=== PATIENT | female | born 1995 | race Caucasian/White ===

== ENCOUNTER 2020-05-06 08:20 | Emergency (ER) | payer OTHER, SELFPAY ==
[2020-05-06 08:42] VITALS: BP 131/73; PULSE 60; RESP 16; TEMP 36.7; O2SAT 100
--- NOTE | 2020-05-06 09:04 | ED.ABDPAIN ---
HPI - Abdominal Pain General Chief Complaint: Abdominal Pain Stated Complaint: Abdominal pain History of Present Illness HPI narrative: This is a 24-year-old white female who presented to urgent care today complaining of abdominal pain. According to patient her symptoms started yesterday and it worsens when she bends over she also noted that her pain migrates to her right lower back. Patient will transfer to [facility] for further testing accepting physician Dr. Phillips. Patient will be transferred 40 and her own personal vehicle it has been explained to patient that we recommend transfer to [facility] via EMS for safety reasons. Patient has declined and will transfer herself via personal vehicle. The patient denies SOB, CP, palpitation, extremity numbness, lightheadedness, dizziness, constipation, diarrhea, chills, or fever. Related Data Home Medications Medication Instructions Recorded Confirmed No Home Medications 05/06/20 05/06/20 Allergies Allergy/AdvReac Type Severity Reaction Status Date / Time No Known Allergies Allergy Mild NONE Verified 05/06/20 08:51 Review of Systems Review of Systems: All systems reviewed & are unremarkable except as noted in HPI and below PMFSH Past Medical History Medical History Asthma Pneumonia UTI (urinary tract infection) Surgical History Surgical History History of section History of lung surgery History of tonsillectomy History of tubal ligation Social History Social History Smoking status: Never smoker Gender identity (if verbalized by the patient): Female Exam Narrative: Exam Narrative: GENERAL: This is a well-nourished, well-developed patient, in no apparent distress. HEAD: normocephalic, atraumatic. EYES: PERRL. Sclera clear/white. Vision is grossly intact. EARS: External ears normal, auditory canals clear and without drainage, TMs normal without perforation. Hearing grossly intact. NOSE: External nose normal with no obvious nasal discharge, nares without redness, no rhinorrhea. THROAT: Mucous membranes moist, posterior pharynx clear. NECK: Neck supple, non-tender without lymphadenopathy, masses or thyromegaly. CARDIOVASCULAR: Regular rate and rhythm without murmurs, gallops, or rubs. RESPIRATORY: Clear to auscultation. Breath sounds equal bilaterally. No wheezes, rales, or rhonchi. GASTROINTESTINAL: Right lower quadrant tenderness voluntary involuntary guarding, rovsing positive bowel sounds present, right lower quadrant palpable mass. SKIN: warm, intact with no suspicious lesions or rash, good texture and turgor. NEURO: awake, alert, and oriented to person, place and time. There were no obvious focal neurologic abnormalities. Steady gait EXTREMITIES: Normal range of motion. No edema. No calf tenderness. Negative Homans sign bilaterally. BACK: Nontender without deformity or crepitance. No flank tenderness. Course Vital Signs Vital signs: Vital Signs Temperature 98.0 F 05/06/20 08:42 Pulse Rate 60 05/06/20 08:42 Respiratory Rate 16 05/06/20 08:42 Blood Pressure 131/73 05/06/20 08:42 Pulse Oximetry 100 05/06/20 08:42 Temperature 98.0 F 05/06/20 08:42 Pulse Rate 60 05/06/20 08:42 Respiratory Rate 16 05/06/20 08:42 Blood Pressure 131/73 05/06/20 08:42 Pulse Oximetry 100 05/06/20 08:42 Transfer Transfered to: [facility] Transfer rationale: r/o appendicitis Accepting physician: Dr. Phillips [facility] - Abdominal Pain Differential Diagnosis Differential diagnosis: Likely abdominal pain, acute appendicitis and gastroenteritis Lab Data Attestation: I reviewed the patient's lab results. Labs: Urine Glucose Negative Reference Range: Negative Urine Bilirubin Neg
== END 2020-05-06 09:02 | disposition short-term general hospital (02) ==
PROVIDERS: Emergency Provider Nurse Practitioner
DX: R10.31 Right lower quadrant pain (principal); M19.90 Unspecified osteoarthritis, unspecified site
CPT/HCPCS: 81003; 99212; G0463

== ENCOUNTER 2020-05-06 09:19 | Emergency (ER) | payer OTHER, SELFPAY ==
--- NOTE | ~2020-05-06 | CT_ITS ---
EXAMINATION: CT abdomen pelvis w con DATE: 05/06/2020 10:24 INDICATION: Right lower quadrant abdominal pain. Nausea. TECHNIQUE: Computed tomography (CT) of the abdomen and pelvis was performed with 100 mL Omnipaque 350 intravenous contrast. Automated exposure control and iterative reconstruction technique were employe d. The dose-length product was 937.67 mGy-cm. COMPARISON: CT abdomen and pelvis 01/14/2017 FINDINGS: The visualized portions of the lung bases demonstrate mild atelectasis on the right. No ple ural effusion. The heart size is normal. No pericardial effusion. The liver and spleen are normal. Th ere are changes of cholecystectomy. The pancreas, adrenal glands, and kidneys are normal. There are n o dilated loops of bowel. The appendix is normal. There are no pathologically enlarged lymph nodes. T here is trace pelvic ascites. There is a small umbilical hernia containing fat. There is mild lumbar spondylosis. IMPRESSION: 1. Small umbilical hernia containing fat. Reviewed, dictated and finalized at location A. ENTER/LABOR
--- NOTE | 2020-05-06 09:25 | ED.ABDPAIN ---
HPI - Abdominal Pain General Chief Complaint: Abdominal Pain Stated Complaint: right lower abd pain Time Seen by Provider: 05/06/20 09:20 History of Present Illness HPI narrative: 24 yo female w/ h/o ovarian cyst presents by private vehicle from urgent care for abdominal pain. She reports RLQ pain since last night. Mild at rest, worse with movement. No nausea, vomiting, diarrhea, constipation, fever. She has never had this pain before Related Data Home Medications Medication Instructions Recorded Confirmed No Home Medications 05/06/20 05/06/20 Allergies Allergy/AdvReac Type Severity Reaction Status Date / Time No Known Allergies Allergy Mild NONE Verified 05/06/20 09:39 Review of Systems Review of Systems: All systems reviewed & are unremarkable except as noted in HPI and below Constitutional: Constitutional: Denies fever(s) Cardiovascular: Cardiovascular: Denies chest pain Respiratory: Respiratory: Denies dyspnea Gastrointestinal: Gastrointestinal: Reports abdominal pain, Denies constipation, Denies diarrhea, Denies nausea and Denies vomiting Genitourinary: Genitourinary: Denies hematuria, Denies nocturia and Denies dysuria Musculoskeletal: Musculoskeletal: Denies back pain Neurologic: Denies numbness and Denies weakness [facility] Past Medical History Medical History Asthma Pneumonia UTI (urinary tract infection) Surgical History Surgical History History of section History of lung surgery History of tonsillectomy History of tubal ligation Social History Social History Smoking status: Never smoker Gender identity (if verbalized by the patient): Female Exam Const: General: healthy appearing, no acute distress and alert Orientation/consciousness: patient oriented x3 HENMT: Head: normal to inspection Neck: Neck: normal visual inspection Resp: Effort & Inspection: normal respiratory effort Auscultation: clear to auscultation bilaterally, no rales, no rhonchi and no wheezes Cardio: Jugular venous distension: no JVD Rate: regular rate Rhythm: regular rhythm Heart sounds: no murmurs GI: Inspection: non-distended GI Palp: Yes Soft to palpation, Yes Tenderness to palpation present (GI) (point tenderness over lateral RLQ), No Guarding due to palpation present (GI) and No Rebound tenderness present Skin: General skin exam: normal color Neuro: General: patient oriented x3 and moves all extremities Speech: normal speech Gait exam (Neuro): Normal gait present Extrem: General: no edema Psych: Appearance: well kempt Affect: normal affect Course Vital Signs Vital signs: Vital Signs Temperature 36.6 C 05/06/20 09:36 Pulse Rate 73 05/06/20 09:36 Respiratory Rate 16 05/06/20 09:36 Blood Pressure 133/75 05/06/20 09:36 Pulse Oximetry 99 05/06/20 09:36 Temperature 36.6 C 05/06/20 09:36 Pulse Rate 73 05/06/20 09:36 Respiratory Rate 16 05/06/20 09:36 Blood Pressure 133/75 05/06/20 09:36 Pulse Oximetry 99 05/06/20 09:36 MDM - Abdominal Pain Differential Diagnosis Differential diagnosis: Likely acute appendicitis, calculus of kidney and other (ovarian cyst) Medical Records Attestation: I reviewed the patient's medical records. Lab Data Attestation: I reviewed the patient's lab results. Result diagrams: 05/06/20 09:41 05/06/20 09:41 Labs: Lab Results 05/06/20 05/06/20 05/06/20 Range/Units 09:41 09:41 09:41 WBC 5.8 (4.5-10.0) K/mm3 RBC 4.53 (4.2-5.4) M/mm3 Hgb 11.8 L (12.0-15.0) g/dL Hct 36.7 L (37.0-47.0) % MCV 81.0 (80-100) fl MCH 26.0 (26-34) pg MCHC 32.2 (32-36) g/dl RDW 16.6 H (11.5-14.5) % Plt Count 228 (150-375) k/mm3 MPV 11.0 H (7.4-10.4) fl Immature Gran % (Auto) 0.2 (0-0.5)
[2020-05-06 09:36] VITALS: BP 133/75; PULSE 73; RESP 16; TEMP 36.6; O2SAT 99
[2020-05-06 09:52] LABS: Basophils Percent Auto 0.3 % (0.2-1.2); Eosinophils Absolute Auto 0.2 K/mm3 (0-0.3); Eosinophils Percent Auto 2.9 % (0-4.4); Hematocrit 36.7 % (37.0-47.0); Hemoglobin 11.8 g/dL (12.0-15.0); Immature Granulocyte Absolute 0.01 K/mm3 (0.00-0.031); Immature Granulocyte Percent A 0.2 % (0-0.5); Lymphocytes Absolute Auto 1.66 K/mm3 (0.9-3.2); Lymphocytes Percent Auto 28.6 % (18.3-44.2); Mean Corpuscular HGB Conc 32.2 g/dl (32-36); Monocytes Absolute Auto 0.4 K/mm3 (0.1-0.6); Monocytes Percent Auto 6.7 % (2.6-8.5); Neutrophils Absolute Auto 3.6 K/mm3 (1.3-6.7); Neutrophils Percent Auto 61.3 % (45.5-73.1); Platelet Count Result 228 k/mm3 (150-375); Red Blood Count 4.53 M/mm3 (4.2-5.4); Red Cell Distribution Width 16.6 % (11.5-14.5); White Blood Count 5.8 K/mm3 (4.5-10.0)
[2020-05-06] MEDS: KETOROLAC 30 MG/ML VIAL (*BKC) IV PUSH (09:59)
[2020-05-06] MEDS: SODIUM CHLORIDE 0.9% IV 1,000 ML 999 ML IV CONT (10:00)
[2020-05-06 10:01] LABS: Add Urine Microscopic? YES; Appearance Urine Cloudy (Clear); Bacteria Urine Trace /hpf; Bilirubin Urine Negative (Negative); Blood Urine 2+ (Negative); Color Urine Yellow (Yellow); Glucose Urine UA Negative (Negative); Ketones Urine Negative (Negative); Leukocyte Esterase Ur Negative LEU/UL (Negative); Mucus Urine Rare /lpf; Nitrate Urine Negative (Negative); Protein Urine Negative (Negative); RBC Urine 0-2 /hpf (0-2); Specific Grav Ur 1.013 (1.001-1.035); Squamous Epithelial Cell Urine Many /hpf (Few); Urobilinogen Urine Negative mg/dL (<2.0); WBC Urine 0-3 /hpf
[2020-05-06 10:07] LABS: Alanine Aminotransferase 10 U/L (4-35); Albumin Level 3.9 g/dL (3.5-5.1); Alkaline Phosphatase 58 U/L (38-126); Anion Gap 6 mmol/L (8-16); Aspartate Amino Transferase 16 U/L (14-36); Bilirubin,Total 0.3 mg/dL (0.2-1.3); Blood Urea Nitrogen 9 mg/dL (7-17); Carbon Dioxide 28 mmol/L (22-30); Chloride 104 mmol/L (98-107); Estimated CRCL calculation 141 ml/min; Estimated Glomerular Filt Rate > 60; Glucose 91 mg/dL (65-105); Lipase 57 U/L (23-300); Sodium 138 mmol/L (137-145)
[2020-05-06 11:15] VITALS: BP 132/77; PULSE 63; RESP 16; O2SAT 100
== END 2020-05-06 11:15 | disposition home or self-care (01) ==
PROVIDERS: Emergency Provider Emergency Medicine
DX: R10.31 Right lower quadrant pain (principal); J45.909 Unspecified asthma, uncomplicated; Z87.440 Personal history of urinary (tract) infections; K42.9 Umbilical hernia without obstruction or gangrene
CPT/HCPCS: 36415; 74177; 80053; 81001; 81003; 83690; 85025; 96361; 96374; 99284; J1885; J7030; Q9967

== ENCOUNTER 2020-05-31 08:01 | Emergency (ER) | payer OTHER, SELFPAY ==
--- NOTE | 2020-05-31 08:05 | ED.GENADULT ---
HPI - General Adult General Chief complaint: Upper Respiratory Infection Stated complaint: Runny nose/Sore throat Time Seen by Provider: 05/31/20 08:05 Source: patient Mode of arrival: ambulatory Limitations: no limitations History of Present Illness HPI narrative: 24-year-old female patient presents to the [facility] with complaints of a sore throat, cough and a runny nose. Patient states runny nose started yesterday and then when she went to go lay down to go to sleep last night she started having a cough. Patient states woke up today with sore throat. Denies any fevers, body aches or chills. Denies any shortness of breath or chest pain. Denies any nausea, vomiting or diarrhea. Patient states she has taken some Motrin for her symptoms so far. Patient states that her does have similar symptoms but denies being around anybody with Covid that she is aware of. 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 Related Data Allergies Allergy/AdvReac Type Severity Reaction Status Date / Time No Known Allergies Allergy Mild NONE Verified 05/31/20 08:17 Review of Systems Review of Systems: Narrative: CONSTITUTIONAL: Denies fever, chills, or sweats. EYES: Denies visual changes, redness, or discharge. ENT: Positive rhinorrhea, congestion, sore throat, denies otalgia. CARDIOVASCULAR: Denies chest pain, palpitations, or edema. RESPIRATORY: Positive cough, denies dyspnea. GASTROINTESTINAL: Denies abdominal pain, nausea, vomiting, or diarrhea. GENITOURINARY: Denies dysuria or hematuria. SKIN: Denies rash or itching. MUSCULOSKELETAL: Denies back pain, joint pain, or myalgia. NEUROLOGIC: Denies headache, numbness, or weakness. PSYCHIATRIC: Denies anxiety or depression. [facility] Past Medical History Medical History Asthma Pneumonia UTI (urinary tract infection) Surgical History Surgical History History of section History of lung surgery History of tonsillectomy History of tubal ligation Social History Social History Smoking status: Never smoker Gender identity (if verbalized by the patient): Female Comments At the time of my signature I agree with nursing past medical history, surgical, social, and family history. There is no relevant family history pertinent to the presenting complaint. Exam Narrative: Exam Narrative: GENERAL: Well-appearing, well-nourished, and in no acute distress. HEAD: Normocephalic, atraumatic. EYES: PERRLA and EOMI. ENT: Nares with erythema and edema noted to the right nare, no active rhinorrhea or epistaxis. Mucous membranes moist. Posterior pharynx with no erythema, tonsillar Lucretia, exudates or lesions present. Bilateral TMs are clear no erythema or foreign bodies in the canal. NECK: Supple. No lymphadenopathy CHEST: Clear to auscultation. No respiratory distress. Patient able talk in clear complete sentences. No tripoding noted. HEART: Regular rate and rhythm. No murmur heard. Normal peripheral pulses. ABDOMEN: Soft, nontender, nondistended, normal active bowel sounds. EXTREMITIES: Normal range of motion. No edema. SKIN: Warm, dry, no rash. NEURO: No focal deficits. Alert and oriented x3. Course Reevaluation(s) Reevaluation #1: Reevaluated patient after her strep test had resulted. Notified her that her strep test today is negative. Discussed with her that we will send this off to the lab just to be sure is truly negative. We went ahead and swab patient for a PCR Covid test today and will send that off to the lab as well. Discussed with patient that we should have results in about 24 to 48 hours however since she does have symptoms it is very important that she continue to remain isolated and the CDC does recommend for 10 days from onset of symptoms. Discussed with her that we cannot release her to work and therefore whe
--- NOTE | 2020-05-31 08:13 | PC.NURSE ---
[id number]- 1st attempt to contact went straight to voicemail
[2020-05-31 08:26] VITALS: BP 108/67; PULSE 83; RESP 16; TEMP 36.3; O2SAT 100
[2020-06-01 23:00] LABS: SARS-CoV-2 RNA PCR Negative
== END 2020-05-31 08:42 | disposition home or self-care (01) ==
PROVIDERS: Emergency Provider Nurse Practitioner Family
DX: J06.9 Acute upper respiratory infection, unspecified (principal); R05 Cough; Z20.822 Contact with and (suspected) exposure to COVID-19; J45.909 Unspecified asthma, uncomplicated
CPT/HCPCS: 87081; 87880; 99213; C9803; G0463; U0003; U0005

== ENCOUNTER 2020-10-26 11:53 | Outpatient (CLI) | payer OTHER, SELFPAY ==
--- NOTE | ~2020-10-26 | XR_ITS ---
EXAMINATION: XR lumbar spine 2-3V DATE: 10/26/2020 12:14 INDICATION: Low back pain TECHNIQUE: Anteroposterior and lateral views of the lumbar spine, and cone-down lateral view of the l umbosacral junction were obtained. COMPARISON: CT, 01/14/2017 FINDINGS: There is no fracture, dislocation, or subluxation. The vertebral body heights, alignment, a nd intervertebral disc spaces are normal. The paravertebral soft tissues are unremarkable. Cholecyste ctomy clips are noted. The bowel gas pattern is normal. IMPRESSION: 1. Unremarkable lumbar spine. Reviewed, dictated and finalized at location B.
== END 2020-10-26 11:54 | disposition home or self-care (01) ==
LOC: ANHIMG 11:59
PROVIDERS: PCP Physician Assistant; Visit Provider Physician Assistant
DX: M54.5 Low back pain (principal)
CPT/HCPCS: 72100

== ENCOUNTER 2021-01-02 12:28 | Observation (INO) | payer OTHER, SELFPAY ==
--- NOTE | ~2021-01-02 | CT_ITS ---
EXAMINATION: CT abdomen pelvis w con DATE: 01/02/2021 13:31 INDICATION: Right lower quadrant abdominal pain TECHNIQUE: Computed tomography (CT) of the abdomen and pelvis was performed with 100 mL Omnipaque-350 intravenous contrast. Automated exposure control and iterative reconstruction technique were employe d. The dose-length product was 328.29 mGy-cm. COMPARISON: 05/06/2020 FINDINGS: Mild streaky atelectasis at the posterior sulcus of the right lower lobe. Heart size normal. No peric ardial or pleural effusion. Focal hepatic steatosis at the ligamentum teres. Cholecystectomy clips at the gallbladder fossa. Pancreas, bilateral adrenal glands and kidneys are normal. The appendix is di lated to 12 mm with mucosal hyperemia and minimal periappendiceal fluid consistent with acute appendi citis. No abscess or free intraperitoneal gas. Remainder of the bowels are unremarkable with no abnor mal wall thickening. Bladder, anteverted uterus and bilateral adnexa are unremarkable. No pathologica lly enlarged abdominal or pelvic lymphadenopathy. Tiny fat-containing umbilical hernia. L5 is sacrali zed on the right. IMPRESSION: 1. Acute appendicitis. Dr. Jennings discussed these findings with Dr. Zarate at 1:52 PM. Reviewed, dictated and finalized at location A.
[2021-01-02 12:34] VITALS: BP 105/71; PULSE 76; RESP 16; TEMP 36.8; O2SAT 96
--- NOTE | 2021-01-02 12:55 | ED.ABDPAIN ---
HPI - Abdominal Pain General Chief Complaint: Abdominal Pain Stated Complaint: abd pain Time Seen by Provider: 01/02/21 12:47 Source: patient and RN notes reviewed Mode of arrival: ambulatory Limitations: no limitations History of Present Illness HPI narrative: This is a 25 year old female who presents for evaluation of right side abdominal pain. She developed right side abdominal pain on Monday. She reports she has constant pain and it is worse with movement and laying on her right side. She reports her pain shoots to her left side when she moves. She developed nausea, vomiting and diarrhea today. She denies fever or chills. She took tylenol for her pain without relief. She denies urinary symptoms. She denies abnormal vaginal discharge. She has history of ovarian cyst but she states this pain is not as severe a her previous episodes of ovarian cyst. Pain is rated currently 5/10. Related Data Home Medications Medication Instructions Recorded Confirmed albuterol sulfate 2 puff INHALATION TID PRN 01/02/21 01/02/21 Allergies Allergy/AdvReac Type Severity Reaction Status Date / Time No Known Allergies Allergy Mild NONE Verified 01/02/21 16:34 Review of Systems Review of Systems: All systems reviewed & are unremarkable except as noted in HPI and below PMFSH Past Medical History Medical History (Updated 01/02/21 @ 14:46 by Valentina Zarate MD) Asthma Pneumonia UTI (urinary tract infection) Surgical History Surgical History (Updated 01/02/21 @ 12:59 by Valentina Zarate MD) History of section History of cholecystectomy History of lung surgery History of tonsillectomy History of tubal ligation Family History Family History (Updated 01/02/21 @ 16:54 by Michelle Vail RN) Father Sleep apnea Obesity Hypertension Mother Obesity Hypertension Degenerative disk disease Bipolar 1 disorder Other Lung cancer Social History Social History Smoking packs per day: 2 Smoking cigarettes per day: 40.0 Years smoked: 2 Smoking pack-years: 4.00 Smoking status: Current every day smoker Tobacco type: cigarettes Alcohol intake: never Substance use: current Substance use type: marijuana Last use: 01/01/21 Gender identity (if verbalized by the patient): Female Spiritual care concerns: No Exam Const: General: no acute distress and alert Orientation/consciousness: patient oriented x3 Eyes: EOM: EOMs intact bilaterally Resp: Effort & Inspection: normal respiratory effort and no retractions Auscultation: clear to auscultation bilaterally Cardio: Rate: regular rate Rhythm: regular rhythm Heart sounds: no murmurs GI: GI Palp: Yes Soft to palpation, Yes Tenderness to palpation present (GI) (RUQ, RLQ, LLQ) and No Guarding due to palpation present (GI) Auscultation: normal bowel sounds Skin: General skin exam: normal color Rashes: no rashes Neuro: General: patient oriented x3, moves all extremities and CN's II-XI intact bilaterally Psych: Mental Status: mental status grossly normal Course Consultations Consultation #1: I Discussed case with Dr. Felix. He states to admit patient to his service on clear liquid diet and zosyn. Patient will likely have surgery tomorrow morning. Date: 01/02/21 Time: 14:44 Vital Signs Vital signs: Vital Signs Temperature 98.2 F 01/02/21 12:34 Pulse Rate 76 01/02/21 12:34 Respiratory Rate 16 01/02/21 12:34 Blood Pressure 105/71 01/02/21 12:34 Pulse Oximetry 96 01/02/21 12:34 Temperature 97.3 F L 01/02/21 20:29 Pulse Rate 62 01/02/21 20:29 Respiratory Rate 18 01/02/21 20:29 Blood Pressure 113/61 01/02/21 20:29 Pulse Oximetry 100 01/02/21 20:29 MDM - Abdominal Pain Lab Data Attestation: I reviewed the patient's lab results. Result diagrams: 01/02/21 12:44 01/02/21 12:44 Labs: Lab Results
[2021-01-02] MEDS: ONDANSETRON INJ 4 MG/2 ML VIAL IV PUSH ×3 (13:03→22:24)
[2021-01-02] MEDS: KETOROLAC 30 MG/ML VIAL (*BKC) IV PUSH (13:03)
[2021-01-02] MEDS: LACTATED RINGERS 1,000 ML 999 ML IV CONT (13:03)
[2021-01-02 13:07] LABS: Basophils Percent Auto 0.4 % (0.2-1.2); Eosinophils Absolute Auto 0.1 K/mm3 (0-0.3); Hematocrit 40.5 % (37.0-47.0); Hemoglobin 12.9 g/dL (12.0-15.0); Immature Granulocyte Absolute 0.01 K/mm3 (0.00-0.031); Immature Granulocyte Percent A 0.2 % (0-0.5); Lymphocytes Absolute Auto 1.52 K/mm3 (0.9-3.2); Lymphocytes Percent Auto 27.2 % (18.3-44.2); Mean Corpuscular HGB Conc 31.9 g/dl (32-36); Mean Corpuscular Volume 81.5 fl (80-100); Mean Platelet Volume 11.3 fl (7.4-10.4); Monocytes Absolute Auto 0.4 K/mm3 (0.1-0.6); Monocytes Percent Auto 6.6 % (2.6-8.5); Neutrophils Absolute Auto 3.6 K/mm3 (1.3-6.7); Neutrophils Percent Auto 63.6 % (45.5-73.1); Platelet Count Result 169 k/mm3 (150-375); Red Blood Count 4.97 M/mm3 (4.2-5.4); Red Cell Distribution Width 15.6 % (11.5-14.5); White Blood Count 5.6 K/mm3 (4.5-10.0)
[2021-01-02 13:17] LABS: Alanine Aminotransferase 10 U/L (4-35); Albumin Level 4.3 g/dL (3.5-5.1); Alkaline Phosphatase 55 U/L (38-126); Anion Gap 9 mmol/L (8-16); Aspartate Amino Transferase 18 U/L (14-36); Bilirubin,Total 0.4 mg/dL (0.2-1.3); Blood Urea Nitrogen 7 mg/dL (7-17); Calcium 9.3 mg/dL (8.4-10.2); Carbon Dioxide 25 mmol/L (22-30); Chloride 102 mmol/L (98-107); Estimated CRCL calculation 105 ml/min; Estimated Glomerular Filt Rate > 60; Glucose 82 mg/dL (65-110); Lipase 45 U/L (23-300); Potassium 3.4 mmol/L (3.4-5.0); Sodium 136 mmol/L (137-145)
[2021-01-02 13:19] LABS: Add Urine Microscopic? YES; Appearance Urine Clear (Clear); Bacteria Urine Trace /hpf; Bilirubin Urine Negative (Negative); Blood Urine 2+ (Negative); Color Urine Yellow (Yellow); Glucose Urine UA Negative (Negative); Ketones Urine 1+ mg/dL (Negative); Leukocyte Esterase Ur Trace LEU/UL (Negative); Mucus Urine Few /lpf; Nitrate Urine Negative (Negative); Protein Urine 1+ mg/dL (Negative); Specific Grav Ur 1.019 (1.001-1.035); Squamous Epithelial Cell Urine Few /hpf (Few)
--- NOTE | 2021-01-02 13:27 | PC.NURSE ---
Taken to CT at this time.
[2021-01-02 13:33] VITALS: TEMP 36.8
[2021-01-02 13:53] VITALS: BP 131/108; PULSE 63; RESP 18; O2SAT 100
[2021-01-02] MEDS: HYDROmorphone HCL INJ (*CRX) 1 MG/ML SYR 0.5 MG IV PUSH ×3 (15:06→22:25)
[2021-01-02 15:36] VITALS: TEMP 36.8
--- NOTE | 2021-01-02 16:31 | ADMGEN ---
This patient, Kamille Soriano, was admitted to Medical Room 249-01. Patient/family oriented to hospital policies and general routines including ID bracelet, bed and alarms, visiting hours, pain management, procedures, bathroom and other care routines, personal items, smoking policy, room service/diet, and visiting hours. Information on how to activate the Rapid Response Team has been discussed. Patient/Family are encouraged to report perceived risks to care and to ask questions if they do not understand what they are told or what they should do.
--- NOTE | 2021-01-02 16:41 | ADMGEN ---
This patient, Kamille Soriano, was admitted to 2 Medical Room 249-01. Patient/family oriented to hospital policies and general routines including ID bracelet, bed and alarms, visiting hours, pain management, procedures, bathroom and other care routines, personal items, smoking policy, room service/diet, and visiting hours. Information on how to activate the Rapid Response Team has been discussed. Patient/Family are encouraged to report perceived risks to care and to ask questions if they do not understand what they are told or what they should do. report received from [facility]
[2021-01-02 17:07] VITALS: BP 115/76; PULSE 60; RESP 18; TEMP 35.7; O2SAT 99
[2021-01-02 17:08] VITALS: BMI 26.4
[2021-01-02] MEDS: LACTATED RINGERS 1,000 ML 125 ML IV CONT (19:12)
[2021-01-02 20:29] VITALS: BP 113/61; PULSE 62; RESP 18; TEMP 36.3; O2SAT 100
[2021-01-02] MEDS: NICOTINE (*PBKC) 21 MG PATCH 1 PATCH TRANSDERM (21:06)
[2021-01-03] VITALS (13 sets, daily range): BP systolic 101–148; BP diastolic 61–89; PULSE 45–76; RESP 12–18; TEMP 35.8–37.1; O2SAT 99–100
[2021-01-03] MEDS: HYDROmorphone HCL INJ (*CRX) 1 MG/ML SYR 0.5 MG IV PUSH (03:16)
[2021-01-03] MEDS: ONDANSETRON INJ 4 MG/2 ML VIAL IV PUSH ×3 (03:18→12:31)
--- NOTE | 2021-01-03 07:21 | WPDANESEPP ---
Anes - Eval Pre Procedure Procedure: Operation Date: 01/03/21 07:30 Proposed Procedures p Laparoscopic Appendectomy - Gregory Lorenz DO Date/Time: 01/03/21 07:21 Pre Op Diagnosis: acute appendicitis Patient Data Age: 25 Gender: F Height: 1.63 m Weight: 69.7 kg Last Vital Signs Temp 37.1 C 01/03/21 04:30 Pulse 60 01/03/21 04:30 Resp 16 01/03/21 04:30 BP 101/61 01/03/21 04:30 Pulse Ox 99 01/03/21 04:30 Allergies Allergy/AdvReac Type Severity Reaction Status Date / Time No Known Allergies Allergy Mild NONE Verified 01/02/21 16:34 Home Medications Medication Instructions Recorded Confirmed Type albuterol sulfate 2 puff INHALATION TID PRN 01/02/21 01/02/21 History Laboratory Tests 01/02/21 01/02/21 01/02/21 12:44 12:44 12:44 WBC 5.6 K/mm3 K/mm3 (4.5-10.0) RBC 4.97 M/mm3 M/mm3 (4.2-5.4) Hgb 12.9 g/dL g/dL (12.0-15.0) Hct 40.5 % % (37.0-47.0) MCV 81.5 fl fl (80-100) MCH 26.0 pg pg (26-34) MCHC 31.9 g/dl L g/dl (32-36) RDW 15.6 % H % (11.5-14.5) Plt Count 169 k/mm3 k/mm3 (150-375) MPV 11.3 fl H fl (7.4-10.4) Immature Gran % (Auto) 0.2 % % (0-0.5) Neut % (Auto) 63.6 % % (45.5-73.1) Lymph % (Auto) 27.2 % % (18.3-44.2) [place] % (Auto) 6.6 % % (2.6-8.5) Eos % (Auto) 2.0 % % (0-4.4) Baso % (Auto) 0.4 % % (0.2-1.2) Lymph # (Auto) 1.52 K/mm3 K/mm3 (0.9-3.2) [place] # (Auto) 0.4 K/mm3 K/mm3 (0.1-0.6) Eos # (Auto) 0.1 K/mm3 K/mm3 (0-0.3) Baso # (Auto) 0.0 K/mm3 K/mm3 (0.0-0.1) Abs Immat Gran (auto) 0.01 K/mm3 K/mm3 (0.00-0.031) Absolute Neuts (auto) 3.6 K/mm3 K/mm3 (1.3-6.7) Absolute Nucleated RBC 0.0 K/mm3 K/mm3 (0.0-0.012) Nucleated RBC % 0.0 % % (0.0-0.2) Sodium 136 mmol/L L mmol/L (137-145) Potassium 3.4 mmol/L mmol/L (3.4-5.0) Chloride 102 mmol/L mmol/L (98-107) Carbon Dioxide 25 mmol/L mmol/L (22-30) Anion Gap 9 mmol/L mmol/L (8-16) BUN 7 mg/dL mg/dL (7-17) Creatinine 0.60 mg/dL L mg/dL (0.7-1.0) Estim Creat Clear Calc 105 ml/min ml/min Estimated GFR > 60 (59 - ) Glucose 82 mg/dL mg/dL (65-110) Calcium 9.3 mg/dL mg/dL (8.4-10.2) Total Bilirubin 0.4 mg/dL mg/dL (0.2-1.3) AST 18 U/L U/L (14-36) ALT 10 U/L U/L (4-35) Alkaline Phosphatase 55 U/L U/L (38-126) Total Protein 8.0 g/dL g/dL (6.3-8.2) Albumin 4.3 g/dL g/dL (3.5-5.1) Lipase 45 U/L U/L (23-300) Urine Color Yellow (Yellow) Urine Appearance Clear (Clear) Urine pH 6.0 (5.0-9.0) Ur Specific [place] 1.019 (1.001-1.035) Urine Protein 1+ mg/dL H mg/dL (Negative) Urine Glucose (UA) Negative mg/dL mg/dL (Negative) Urine Ketones 1+ mg/dL H mg/dL (Negative) Ur Blood (Man) 2+ H (Negative) Urine Nitrate Negative (Negative) Urine Bilirubin Negative (Negative) Urine Urobilinogen 2.0 mg/dL H mg/dL (<2.0) Leukocyte Esterase Rfl Trace ADEBAYO/UL H ADEBAYO/UL (Negative) Urine RBC 3-5 /hpf H /hpf (0-2) Urine WBC 4-6 /hpf H /hpf Ur Squamous Epith Cells Few /hpf /hpf (Few) Urine Bacteria Trace /hpf /hpf Urine Mucus Few /lpf H /lpf Patient hx anesthesia problems: none Family hx anesthesia problems: none PMFSH Past Medical History Medical History (Updated 01/02/21 @ 14:46 by Valentina Zarate MD) Asthma Pneumonia UTI (urinary tract infection) Surgical History Surgical History (Updated 01/02/21 @ 12:59 by Valentina Zarate MD) History of section
--- NOTE | 2021-01-03 07:25 | WPDHPUPDATE1 ---
History and Physical Update Update Date/Time: 01/03/21 07:25 History and Physical has been reviewed, including an updated exam of the patient. There are NO changes in the patient's condition. Risks, benefits, and alternatives have been discussed and questions answered. Patient agrees to proceed with procedure.
--- NOTE | 2021-01-03 07:29 | WPDANESEPPF ---
Anes - Initial Pre Proc Eval Procedure: Operation Date: 01/03/21 07:30 Proposed Procedures p Laparoscopic Appendectomy - Gregory Lorenz DO Date/Time: 01/03/21 07:29 Surgeon: Gregory Lorenz DO Pre Op Diagnosis: acute appendicitis Patient Data Age: 25 Gender: F Height: 1.63 m Weight: 69.7 kg Last Vital Signs Temp 37.1 C 01/03/21 04:30 Pulse 60 01/03/21 04:30 Resp 16 01/03/21 04:30 BP 101/61 01/03/21 04:30 Pulse Ox 99 01/03/21 04:30 Allergies Allergy/AdvReac Type Severity Reaction Status Date / Time No Known Allergies Allergy Mild NONE Verified 01/02/21 16:34 Home Medications Medication Instructions Recorded Confirmed Type albuterol sulfate 2 puff INHALATION TID PRN 01/02/21 01/02/21 History Laboratory Tests 01/02/21 01/02/21 01/02/21 12:44 12:44 12:44 WBC 5.6 K/mm3 K/mm3 (4.5-10.0) RBC 4.97 M/mm3 M/mm3 (4.2-5.4) Hgb 12.9 g/dL g/dL (12.0-15.0) Hct 40.5 % % (37.0-47.0) MCV 81.5 fl fl (80-100) MCH 26.0 pg pg (26-34) MCHC 31.9 g/dl L g/dl (32-36) RDW 15.6 % H % (11.5-14.5) Plt Count 169 k/mm3 k/mm3 (150-375) MPV 11.3 fl H fl (7.4-10.4) Immature Gran % (Auto) 0.2 % % (0-0.5) Neut % (Auto) 63.6 % % (45.5-73.1) Lymph % (Auto) 27.2 % % (18.3-44.2) [place] % (Auto) 6.6 % % (2.6-8.5) Eos % (Auto) 2.0 % % (0-4.4) Baso % (Auto) 0.4 % % (0.2-1.2) Lymph # (Auto) 1.52 K/mm3 K/mm3 (0.9-3.2) [place] # (Auto) 0.4 K/mm3 K/mm3 (0.1-0.6) Eos # (Auto) 0.1 K/mm3 K/mm3 (0-0.3) Baso # (Auto) 0.0 K/mm3 K/mm3 (0.0-0.1) Abs Immat Gran (auto) 0.01 K/mm3 K/mm3 (0.00-0.031) Absolute Neuts (auto) 3.6 K/mm3 K/mm3 (1.3-6.7) Absolute Nucleated RBC 0.0 K/mm3 K/mm3 (0.0-0.012) Nucleated RBC % 0.0 % % (0.0-0.2) Sodium 136 mmol/L L mmol/L (137-145) Potassium 3.4 mmol/L mmol/L (3.4-5.0) Chloride 102 mmol/L mmol/L (98-107) Carbon Dioxide 25 mmol/L mmol/L (22-30) Anion Gap 9 mmol/L mmol/L (8-16) BUN 7 mg/dL mg/dL (7-17) Creatinine 0.60 mg/dL L mg/dL (0.7-1.0) Estim Creat Clear Calc 105 ml/min ml/min Estimated GFR > 60 (59 - ) Glucose 82 mg/dL mg/dL (65-110) Calcium 9.3 mg/dL mg/dL (8.4-10.2) Total Bilirubin 0.4 mg/dL mg/dL (0.2-1.3) AST 18 U/L U/L (14-36) ALT 10 U/L U/L (4-35) Alkaline Phosphatase 55 U/L U/L (38-126) Total Protein 8.0 g/dL g/dL (6.3-8.2) Albumin 4.3 g/dL g/dL (3.5-5.1) Lipase 45 U/L U/L (23-300) Urine Color Yellow (Yellow) Urine Appearance Clear (Clear) Urine pH 6.0 (5.0-9.0) Ur Specific [employer] 1.019 (1.001-1.035) Urine Protein 1+ mg/dL H mg/dL (Negative) Urine Glucose (UA) Negative mg/dL mg/dL (Negative) Urine Ketones 1+ mg/dL H mg/dL (Negative) Ur Blood (Man) 2+ H (Negative) Urine Nitrate Negative (Negative) Urine Bilirubin Negative (Negative) Urine Urobilinogen 2.0 mg/dL H mg/dL (<2.0) Leukocyte Esterase Rfl Trace ADEBAYO/UL H ADEBAYO/UL (Negative) Urine RBC 3-5 /hpf H /hpf (0-2) Urine WBC 4-6 /hpf H /hpf Ur Squamous Epith Cells Few /hpf /hpf (Few) Urine Bacteria Trace /hpf /hpf Urine Mucus Few /lpf H /lpf Patient hx anesthesia problems: none Family hx anesthesia problems: none PMFSH Past Medical History Medical History ADHD Asthma Hx of migraines Pneumonia UTI (urinary tract infection) Surgical History Surgical History (Reviewed
--- NOTE | 2021-01-03 07:30 | PM.IMHP ---
H&P: HPI History of Present Illness Date/Time: 01/03/21 07:30 Chief Complaint: Right lower quadrant pain Narrative: This is a 25-year-old woman who presents to the emergency department last night with right lower quadrant pain that started about 5 days ago. This started out as a mild pain and then localized to the right lower quadrant. She has had mild pain in the region for several days but over the last 2 days it has become slightly more severe. She has also had some nausea. She denies any bowel habit changes or fevers. CT in the emergency department yesterday showed evidence of acute appendicitis. Review of Systems Review of Systems: All systems reviewed & are unremarkable except as noted in HPI and below Constitutional: Constitutional: Denies fever(s) Eyes: Eyes: Denies change in vision ENT: Denies hearing loss, Denies neck pain and Denies sore throat Cardiovascular: Cardiovascular: Denies chest pain and Denies dyspnea Respiratory: Respiratory: Denies cough, Denies dyspnea and Denies wheezing Gastrointestinal: Gastrointestinal: Reports as per HPI Genitourinary: Genitourinary: Denies hematuria and Denies dysuria Musculoskeletal: Musculoskeletal: Denies arthralgias, Denies joint swelling and Denies neck pain Allergic/Immunologic: Allergic/Immunologic: Denies wheezing PMFSH Past Medical History Medical History (Updated 01/03/21 @ 07:33 by Gregory Lorenz DO) ADHD Asthma Hx of migraines Pneumonia UTI (urinary tract infection) Surgical History Surgical History History of section History of cholecystectomy History of lung surgery History of tonsillectomy History of tubal ligation Family History Family History Father Sleep apnea Obesity Hypertension Mother Obesity Hypertension Degenerative disk disease Bipolar 1 disorder Other Lung cancer Social History Social History Smoking packs per day: 2 Smoking cigarettes per day: 40.0 Years smoked: 2 Smoking pack-years: 4.00 Smoking status: Current every day smoker Tobacco type: cigarettes Alcohol intake: never Substance use: current Substance use type: marijuana Last use: 01/01/21 Gender identity (if verbalized by the patient): Female Spiritual care concerns: No Meds Home Medications and Allergies Home Medications Medication Instructions Recorded Confirmed Type albuterol sulfate 2 puff INHALATION TID PRN 01/02/21 01/02/21 History Allergies Allergy/AdvReac Type Severity Reaction Status Date / Time No Known Allergies Allergy Mild NONE Verified 01/02/21 16:34 Vital Signs Vital Signs - 24 hr 01/02/21 12:34 01/02/21 13:33 01/02/21 13:53 Temperature 36.8 C 36.8 C Pulse Rate 76 63 Respiratory Rate 16 18 Blood Pressure 105/71 131/108 H Pulse Oximetry 96 100 01/02/21 15:36 01/02/21 17:07 01/02/21 20:29 Temperature 36.8 C 35.7 C L 36.3 C L Pulse Rate 60 62 Respiratory Rate 18 18 Blood Pressure 115/76 113/61 Pulse Oximetry 99 100 01/03/21 04:30 Temperature 37.1 C Pulse Rate 60 Respiratory Rate 16 Blood Pressure 101/61 Pulse Oximetry 99 Exam Const: General: alert; No acute distress Orientation/consciousness: patient oriented x3 Limitations: no limitations HENMT: Head: normocephalic and atraumatic Ears: hearing grossly normal bilaterally General nose exam: Normal external nose present and Normal nares present Mouth: Yes Normal oral and palatal mucosa present and Yes moist mucous membranes Eyes: General: appearance normal, both eyes and all related structures Conjunctivae: conjunctivae normal Sclera: sclerae normal Pupils: Equal, round and reactive pupils present EOM: EOMs intact bilaterally Neck: Neck: normal visual inspection, full ROM, no lymphadenopathy, supple and no JVD Lymphatic: no
[2021-01-03] MEDS: BUPIVACAINE/EPINEPHRINE 0.25% 10 ML VIAL 30 ML INFILTRATE (08:00)
[2021-01-03] MEDS: LACTATED RINGERS 1,000 ML 30 ML IV CONT ×2 (08:28)
--- NOTE | 2021-01-03 08:36 | W.PM.PROC2 ---
Procedure Note - Detailed Date of Procedure 01/03/21 Pre-op Diagnosis acute appendicitis Post-op Diagnosis same Procedure Performed Laparoscopic appendectomy Surgeon Gregory Lorenz, DO Anesthesia general and local (0.25% bupivacaine with epinephrine) Indications This is a 25-year-old woman who presented to the emergency department yesterday with right lower quadrant pain for the past [address] showed evidence of acute appendicitis. White blood count was normal and she was afebrile. She was admitted to the hospital and discussions were made with the patient about treatment options and decision was made to proceed with laparoscopic appendectomy, possible open. Findings Laparoscopic appendectomy was performed. The appendix appeared dilated and indurated, but there was no evidence of perforation or abscess. The base of the appendix appeared healthy and viable. She did have few small adhesions to her lower midline abdomen from her prior . These adhesions appeared to be omentum and no bowel was involved. These adhesions were taken down using scissors with electrocautery to allow safe placement of my ports. No other intra-abdominal abnormalities were noted. Description of Procedure Procedure as well as risks, benefits, and alternatives were explained to the patient. The patient agreed to proceed. Written consent was obtained and placed in chart prior to procedure. The patient was brought back to surgical suite. She was placed supine on operating table. Time-out was done to confirm the patient and procedure. The patient was then intubated by the Anesthesia Department. Her abdomen was prepped and draped in sterile fashion using chlorhexidine prep. A 12 mm incision was made at the inferior portion of the umbilicus. Blunt dissection was carried out down to the linea alba. The linea alba was then incised using a 15 blade scalpel. Then bluntly entered into the peritoneal cavity. A 12 mm trocar was then inserted, and carbon dioxide insufflation was used to create a pneumoperitoneum. The camera was inserted and the abdomen was inspected. No immediate abnormalities were identified. The patient was then placed in slight Trendelenburg position and rotated to the left. A 5 mm incision was made in the suprapubic region in midline and a 5 mm trocar was inserted under direct visualization. A 5 mm incision was made in the left lower quadrant and a 5 mm trocar was inserted under direct visualization. The right lower quadrant was carefully inspected. The cecum was identified and then this was traced back to the appendix. The appendix was identified and grasped at the mesoappendix and lifted anteriorly. Careful blunt dissection was carried out at the base of the appendix through the mesoappendix using a [place] grasper. An Endo-SONIA 45 mm blue load stapler was then advanced across the base of the appendix and clamped and fired. A white reload was then clamped across the mesoappendix and fired. This freed up our appendix completely. It was then placed in an EndoCatch bag and removed through the umbilical port. The staple lines were then inspected. Hemostasis appeared adequate and the staple lines appeared secure. The area was then irrigated with sterile saline. The pelvis was then carefully inspected and irrigated with sterile saline as well and the remainder of the abdomen was carefully inspected. The patient was then flattened out in bed. One final inspection was made around the abdominal cavity and no other abnormalities were seen. The ports were then removed under direct visualization. The camera was removed and the pneumoperitoneum was released. The fascia of the umbilical incision was reapproximated using an 0 Vicryl [id number] suture. 0.5% bupivacaine with epinephrine was infiltrated locally around each of the incisions. The skin of the incisions was then approximated using 4-0 Monocryl subcuticular suture and Exofin glue was applied
[2021-01-03] MEDS: fentaNYL CITRATE INJ (*CRX) 100 MCG/2 ML VIAL 25 MCG IV PUSH (08:52)
[2021-01-03] MEDS: diphenhydrAMINE HCl INJ 50 MG/ML VIAL 12.5 MG IV PUSH (09:12)
[2021-01-03] MEDS: SCOPOLAMINE 1.5 MG PATCH TRANSDERM (09:25)
[2021-01-03] MEDS: PROMETHAZINE HCL 25 MG/ML AMPUL 12.5 MG IV PUSH (09:35)
[2021-01-03] MEDS: NICOTINE (*PBKC) 21 MG PATCH 1 PATCH TRANSDERM (10:28)
[2021-01-03] MEDS: LACTATED RINGERS 1,000 ML 100 ML IV CONT (12:33)
[2021-01-03] MEDS: MORPHINE SULFATE (*CRX) 2 MG/ML INJ IV PUSH ×2 (12:49→15:59)
--- NOTE | 2021-01-03 18:03 | PM.DS ---
DS: Admitting Diagnosis Discharge Date 01/03/21 Admitting Diagnosis acute appendicitis DS: Discharge Diagnosis Discharge Diagnosis (1) Acute appendicitis: Qualifiers: Acute appendicitis type: with localized peritonitis Appendicitis abscess presence: without abscess Appendicitis gangrene presence: unspecified whether gangrene present Appendicitis perforation presence: without perforation Qualified Code(s): K35.30 - Acute appendicitis with localized peritonitis, without perforation or gangrene Code(s): K35.80 - Unspecified acute appendicitis Status: Acute (2) Smoker: Code(s): F17.200 - Nicotine dependence, unspecified, uncomplicated Status: Acute (3) Asthma: Code(s): J45.909 - Unspecified asthma, uncomplicated Status: Acute DS: Summary Hospital Course Reason for hospitalization: acute appendicitis Hospital Course: this is a 25-year-old woman who presented to the emergency department on 01/02/2021 with right lower quadrant pain. She had developed pain about 5 days ago but this was very mild at 1st period her pain continued to progress, therefore she presented to the ED. She was noted to have a normal white count but did have tenderness in the right lower quadrant. A CT of her abdomen and pelvis showed evidence of acute appendicitis. She was started on broad-spectrum IV antibiotics and was admitted to the hospital for further treatment. She underwent laparoscopic appendectomy on 01/03/2021. Surgery was uncomplicated and she was returned to the surgical floor postoperatively. Her diet and activity were advanced as tolerated. Later on that day she was tolerating a regular diet, her pain was controlled, and her vitals remained stable. She was discharged on 01/03/2021. Time spent discussing smoking cessation with patient: 3 to 10 minutes Status at Discharge Functional status at discharge: independent ambulation Overall status at discharge: patient is progressing back to baseline Time Spent with Patient Time attestation: Total time spent providing and/or coordinating discharge services: Time spent: Less than 30 minutes Exam Narrative: Unchanged from preoperative exam except for surgical changes DS: Data Data Completed and Pending Completed studies during hospitalization: Pending at discharge 01/03/21 07:45 Surgical [PTH] Routine Imaging Radiologist's impression: ITS Impressions Abdomen/Pelvis CT 01/02/21 13:48 IMPRESSION: 1. Acute appendicitis. Dr. Jennings discussed these findings with Dr. Zarate at 1:52 PM. Discharge Plan Discharge Attending physician on discharge: Gregory Ramey Consulting providers: Jaime Jennings Discharging Clinician: Gregory Ramey. Anticipated Discharge Date/Time: 01/03/21 12:00 Patient Disposition: Home, Self-Care Activity: other - see discharge instructions Diet: regular Wound Care Instructions: follow printed instructions Discharge Instructions: DISCHARGE INSTRUCTION SHEET FOR HERNIA, GALLBLADDER AND APPENDIX SURGERIES DR. RAMEY PATIENT TO TAKE HOME 1. May shower in 24 hours, no soaking in bath x 2weeks. 2. Call office for: Wound increasingly painful or bleeding Vomiting Fever of greater than 101 degrees 3. If no bowel movement for three days, take 1 oz. (30 ml) Milk of Magnesia or MiraLax 17g 1 to 2 times daily. 4. No heavy lifting > 10-15 pounds x weeks for hernia repairs and 2 weeks for laparoscopic cholecystectomy or appendectomy. 5. No driving for 3 days or while taking narcotic pain medications. 6. Ice to surgical site for 48 hours (30 min on, then 30 min off). 7. Up walking 10-30 minutes three times per day. 8. Resume previous home medications. 9. Follow-up 10-14 days in office for wound check or as previously scheduled. ([id number]) 10. Oral pain medications prescription to be sent to pharmacy.
== END 2021-01-03 18:10 | disposition home or self-care (01) ==
LOC: ANHED 14:46 → ANH2MED 15:45
PROVIDERS: Emergency Medicine; Admitting Provider Surgery; Emergency Provider General Practice; PCP Physician Assistant; Visit Provider Surgery
PROC: 0DTJ4ZZ Resection of Appendix, Percutaneous Endoscopic Approach (ICD-10-PCS; CPT 44970; principal; 2021-01-03 07:30)
DX: K35.890 Other acute appendicitis without perforation or gangrene (principal); J45.909 Unspecified asthma, uncomplicated; Z79.51 Long term (current) use of inhaled steroids; F17.210 Nicotine dependence, cigarettes, uncomplicated; F12.90 Cannabis use, unspecified, uncomplicated
CPT/HCPCS: 44970; 36415; 74177; 80053; 81001; 81025; 83690; 85025; 88304; 96361; 96365; 96375; 96376; 99285; A9270; G0378; G0379; J0131; J0330; J1100; J1170; J1200; J1885; J2270; J2405; J2543; J2550; J2704; J2710; J3010; J7120; Q9967

== ENCOUNTER 2021-07-09 08:18 | Emergency (ER) | payer OTHER, SELFPAY ==
--- NOTE | ~2021-07-09 | US_ITS ---
EXAMINATION: US pelvic complete EXAM DATE: 07/09/2021 11:49 INDICATION: Ovarian cyst, vomiting TECHNIQUE: Pelvic transabdominal and transvaginal sonogram was performed. There are multiple graysca le and Doppler images available for interpretation. Correlation is made to CT abdomen pelvis same deniz e. FINDINGS: Uterus measures 8.9 x 5.1 x 4.8 cm, and is morphologically normal. Endometrial stripe dee sures 9 mm, within normal limits. There is no free pelvic fluid. Right adnexa: The ovary measures 3.0 x 2.0 x 2.1 cm and is morphologically normal. Ovarian vascular f low confirmed. Left adnexa: The ovary measures 5.3 x 4.7 x 5.3 cm, with an anechoic complex cystic lesion measuring 4 cm, fishnet appearance which is typical for a hemorrhagic cyst. Ovarian vascular flow confirmed. IMPRESSION: 1. Left ovarian 4 cm lesion most likely hemorrhagic cyst but consider 6 week follow-up pelvic sonogr am. Reviewed, dictated and finalized at location A. CTOR OF CUSTOMER SERVICE IMPRESSION: 1. Left ovarian 4 cm lesion most likely hemorrhagic cyst but consider 6 week f ollow-up pelvic sonogram.
--- NOTE | ~2021-07-09 | XR_ITS ---
EXAMINATION: XR chest 2V DATE: 07/09/2021 09:41 INDICATION: Chest pain. Vomiting. TECHNIQUE: Frontal and lateral views of the chest were obtained. COMPARISON: Chest 2 views 01/24/2019, CT abdomen and pelvis 01/02/2021 FINDINGS: There is a small right pleural effusion. No pneumonia or pneumothorax. The heart size is no rmal. Surgical clips in the right upper quadrant are likely from cholecystectomy. IMPRESSION: 1. Small right pleural effusion. Reviewed, dictated and finalized at location A. NCED REGISTERED NURSE
--- NOTE | ~2021-07-09 | CT_ITS ---
EXAMINATION: CT chest abdomen pelvis w con DATE: 07/09/2021 10:09 INDICATION: Abdominal pain, pleural effusion TECHNIQUE: Transaxial computed tomographic images of the chest, abdomen, and pelvis were obtained aft er the administration of 100 cc of Omnipaque 350 intravenous contrast. The dose-length product (DLP) was 295.82 mGy-cm. Automated exposure control and iterative reconstruction technique were employed. COMPARISON: None FINDINGS: CHEST CT: The lungs are free of acute opacities. There is no pleural effusion or pneumothorax. No pathologicall y enlarged thoracic lymph nodes are identified. The heart size is normal. There is mild dependent ate lectasis. ABDOMEN/PELVIS CT: The liver, spleen, pancreas, and adrenal glands are normal. The gallbladder is surgically absent. The kidneys are unremarkable. No pathologically enlarged abdominal or pelvic lymph nodes are identified. There is no free intraperitoneal gas or evidence of bowel obstruction. There is a 3.8 cm cyst of the left ovary. A small volume of pelvic ascites is present. The appendix is surgically absent. IMPRESSION: 1. No acute findings of the chest, abdomen, or pelvis. Small volume of ascites. Reviewed, dictated and finalized at location B. OMATIC INTERPRETER/TRANSLATOR
[2021-07-09 08:27] VITALS: BP 110/68; PULSE 101; RESP 19; TEMP 36.2; O2SAT 98
[2021-07-09 08:48] LABS: Basophils Percent Auto 0.2 % (0.2-1.2); Eosinophils Percent Auto 0.2 % (0-4.4); Hematocrit 46.4 % (37.0-47.0); Hemoglobin 15.2 g/dL (12.0-15.0); Immature Granulocyte Absolute 0.02 K/mm3 (0.00-0.031); Immature Granulocyte Percent A 0.2 % (0-0.5); Lymphocytes Absolute Auto 0.53 K/mm3 (0.9-3.2); Lymphocytes Percent Auto 5.2 % (18.3-44.2); Mean Corpuscular HGB Conc 32.8 g/dl (32-36); Mean Corpuscular Hemoglobin 28.8 pg (26-34); Mean Corpuscular Volume 87.9 fl (80-100); Mean Platelet Volume 10.2 fl (7.4-10.4); Monocytes Absolute Auto 0.4 K/mm3 (0.1-0.6); Monocytes Percent Auto 4.2 % (2.6-8.5); Neutrophils Absolute Auto 9.1 K/mm3 (1.3-6.7); Platelet Count Result 243 k/mm3 (150-375); Red Blood Count 5.28 M/mm3 (4.2-5.4); Red Cell Distribution Width 15.5 % (11.5-14.5); White Blood Count 10.1 K/mm3 (4.5-10.0)
[2021-07-09 09:01] LABS: Alanine Aminotransferase 12 U/L (4-35); Albumin Level 4.9 g/dL (3.5-5.1); Alkaline Phosphatase 66 U/L (38-126); Anion Gap 12 mmol/L (8-16); Aspartate Amino Transferase 21 U/L (14-36); Bilirubin,Total 0.9 mg/dL (0.2-1.3); Blood Urea Nitrogen 16 mg/dL (7-17); Calcium 9.2 mg/dL (8.4-10.2); Carbon Dioxide 25 mmol/L (22-30); Chloride 103 mmol/L (98-107); Estimated CRCL calculation 88 ml/min; Estimated Glomerular Filt Rate > 60; Glucose 106 mg/dL (65-110); Lipase 50 U/L (23-300); Potassium 3.8 mmol/L (3.4-5.0); Sodium 140 mmol/L (137-145)
--- NOTE | 2021-07-09 09:22 | ED.NAVMDI ---
HPI - Nausea/Vomiting/Diarrhea General Chief complaint: Nausea/Vomiting/Diarrhea Stated complaint: n/v Time Seen by Provider: 07/09/21 09:09 Source: patient Mode of arrival: ambulatory Limitations: no limitations History of Present Illness HPI Narrative: This is a 25-year-old female that presents to the emergency department for nausea and vomiting since last night. Associated with epigastric pain that is burning in nature. Reports she has been having a lot of GI issues recently and has lost some weight. She has an appointment with a GI doctor, but it is not for another couple of months. Denies fever, dysuria, hematuria, or diarrhea. Related Data Allergies Allergy/AdvReac Type Severity Reaction Status Date / Time No Known Allergies Allergy Mild NONE Verified 07/09/21 10:08 Review of Systems Review of Systems: CONSTITUTIONAL: Denies fever CARDIOVASCULAR: Reports chest pain GASTROINTESTINAL: Reports abdominal pain, nausea, vomiting. Denies diarrhea. GENITOURINARY: Denies dysuria or hematuria. All systems reviewed & are unremarkable except as noted in HPI and below PMFSH Past Medical History Medical History ADHD Asthma Hx of migraines Pneumonia UTI (urinary tract infection) Surgical History Surgical History History of appendectomy History of section History of cholecystectomy History of lung surgery History of tonsillectomy History of tubal ligation Family History Family History Father Sleep apnea Obesity Hypertension Mother Obesity Hypertension Degenerative disk disease Bipolar 1 disorder Other Lung cancer Social History Social History Smoking packs per day: 2 Smoking cigarettes per day: 40.0 Years smoked: 2 Smoking pack-years: 4.00 Smoking status: Current every day smoker Tobacco type: cigarettes Alcohol intake: never Substance use: current Substance use type: marijuana Last use: 01/01/21 Gender identity (if verbalized by the patient): Female Spiritual care concerns: No Exam Narrative: GENERAL: Well-appearing, well-nourished, and in no acute distress. HEAD: Normocephalic, atraumatic. EYES: EOMI. CHEST: Clear to auscultation. No respiratory distress. No wheezes rales or rhonchi HEART: Regular rate and rhythm. No murmur heard. Normal peripheral pulses. ABDOMEN: Soft, nondistended, normal active bowel sounds. Tender to palpation in epigastrium, without guarding EXTREMITIES: Normal range of motion. No edema. SKIN: Warm, dry, no rash. NEURO: No focal deficits. Alert and oriented x3. PSYCH: Normal mood and affect Course Vital Signs Vital signs: Vital Signs Temperature 97.1 F L 07/09/21 08:27 Pulse Rate 101 H 07/09/21 08:27 Respiratory Rate 19 07/09/21 08:27 Blood Pressure 110/68 07/09/21 08:27 Pulse Oximetry 98 07/09/21 08:27 Temperature 97.1 F L 07/09/21 08:27 Pulse Rate 101 H 07/09/21 08:27 Respiratory Rate 19 07/09/21 08:27 Blood Pressure 110/68 07/09/21 08:27 Pulse Oximetry 98 07/09/21 08:27 MDM - Nausea/Vomiting/Diarrhea MDM Narrative Medical decision making narrative: Patient presents to the emergency department for abdominal pain, nausea and vomiting. She is afebrile and nontoxic-appearing. Her vitals are stable. CBC shows mild hemoconcentration. Patient hydrated in the ED. Metabolic panel and lipase without concerning findings. Bedside test is negative. Chest x-ray showed a possible small right pleural effusion. CT of the chest/abdomen/pelvis was obtained. CT scan of the chest, abdomen and pelvis without acute findings. Does show an ovarian cyst. Pelvic ultrasound once again shows a left ovarian 4 cm cystic lesion. Consider follow-up 6-week ultrasound. Normal vascular flow
[2021-07-09] MEDS: SODIUM CHLORIDE 0.9% IV 1,000 ML 999 ML IV CONT (09:26)
[2021-07-09] MEDS: ONDANSETRON INJ 4 MG/2 ML VIAL IV PUSH (09:26)
[2021-07-09] MEDS: PANTOPRAZOLE SODIUM IV 40 MG VIAL IV PUSH (09:27)
--- NOTE | 2021-07-09 10:06 | PC.NURSE ---
pt to ct via stretcher.
--- NOTE | 2021-07-09 10:23 | PC.NURSE ---
pt still states she is unable to void.
[2021-07-09] MEDS: METOCLOPRAMIDE HCL INJ 10 MG/2 ML VIAL IV PUSH (11:23)
[2021-07-09] MEDS: diphenhydrAMINE HCl INJ 50 MG/ML VIAL 25 MG IV PUSH (11:23)
--- NOTE | 2021-07-09 11:27 | PC.NURSE ---
pt to ultrasound via wheelchair.
--- NOTE | 2021-07-09 11:48 | PC.NURSE ---
return from ultrasound. per tech pt refused internal images
--- NOTE | 2021-07-09 12:50 | PC.NURSE ---
lab contacted about missing ua results. states will look into it. pending discharge
[2021-07-09 13:06] VITALS: BP 116/68; PULSE 63; RESP 16
[2021-07-10 00:02] LABS: Add Urine Microscopic? YES; Appearance Urine Clear (Clear); Bilirubin Urine Negative (Negative); Blood Urine 2+ (Negative); Color Urine Yellow (Yellow); Glucose Urine UA Negative (Negative); Ketones Urine 2+ mg/dL (Negative); Leukocyte Esterase Ur Negative LEU/UL (Negative); Mucus Urine Rare /lpf; Nitrate Urine Negative (Negative); Protein Urine Negative (Negative); Squamous Epithelial Cell Urine Few /hpf (Few); Urobilinogen Urine Negative mg/dL (<2.0); WBC Urine 0-3 /hpf
== END 2021-07-09 13:06 | disposition home or self-care (01) ==
PROVIDERS: Emergency Provider Emergency Medicine
DX: R11.2 Nausea with vomiting, unspecified (principal); J45.909 Unspecified asthma, uncomplicated; Z87.440 Personal history of urinary (tract) infections; Z87.01 Personal history of pneumonia (recurrent)
CPT/HCPCS: 36415; 71046; 71260; 74177; 76856; 80053; 81001; 81025; 83690; 85025; 96361; 96374; 96375; 99284; C9113; J1200; J2405; J2765; J7030; Q9967

== ENCOUNTER 2022-04-05 13:44 | Emergency (ER) | payer OTHER, SELFPAY ==
[2022-04-05 13:46] VITALS: BP 128/70; PULSE 66; RESP 18; TEMP 36.4; O2SAT 100
[2022-04-05 14:40] LABS: Influenza A QL RT-PCR Negative (Negative); Influenza B QL RT-PCR Negative (Negative); RSV RNA, RT-PCR Negative (Negative); SARS-CoV-2 RNA PCR Negative
--- NOTE | 2022-04-05 14:55 | PC.NURSE ---
patient left waiting area stating wait is too long
== END 2022-04-05 15:14 | disposition left against medical advice (07) ==
PROVIDERS: Emergency Provider Emergency Medicine
DX: R11.2 Nausea with vomiting, unspecified (principal); Z20.822 Contact with and (suspected) exposure to COVID-19
CPT/HCPCS: 87637; 99199

== ENCOUNTER 2022-04-05 15:25 | Emergency (ER) | payer OTHER, SELFPAY ==
--- NOTE | 2022-04-05 15:27 | ED.NAVMDI ---
HPI - Nausea/Vomiting/Diarrhea General Chief complaint: Upper Respiratory Infection Stated complaint: vomitting, hot/cold flashes, diarrhea Time Seen by Provider: 04/05/22 15:27 Source: patient and RN notes reviewed History of Present Illness HPI Narrative: Patient is a 26-year-old female who presents to urgent care with complaints of nausea, vomiting and diarrhea since Monday. Patient states she is able to keep down liquids. Denies any abdominal pain. States that she has had some cramping from her menstrual cycle. Denies any urinary symptoms. Denies any known fevers. Patient did walk out of the emergency room after 1 hour and 15 minutes, due to the weight. Patient was negative for RSV, flu and COVID. Patient states her main concern is having a work note. No other acute complaints. No acute distress noted. Patient aware of the plan of care. Some parts of this dictation were generated by voice recognition software and may contain typographical and/or grammatical inaccuracies. Related Data Home Medications Medication Instructions Recorded Confirmed sertraline 25 mg tablet 25 mg PO DAILY 12/21/21 04/05/22 albuterol sulfate 90 mcg/actuation 2 inh inhalation DIRECTED 04/05/22 04/05/22 aerosol inhaler Allergies Allergy/AdvReac Type Severity Reaction Status Date / Time No Known Allergies Allergy Mild NONE Verified 04/05/22 15:34 Review of Systems Review of Systems: CONSTITUTIONAL: Denies fever, chills, or sweats. EYES: Denies visual changes, redness, or discharge. ENT: Denies rhinorrhea, congestion, sore throat, or otalgia. CARDIOVASCULAR: Denies chest pain, palpitations, or edema. RESPIRATORY: Denies cough or dyspnea. GASTROINTESTINAL: Reports of nausea, vomiting and diarrhea GENITOURINARY: Denies dysuria or hematuria. SKIN: Denies rash or itching. MUSCULOSKELETAL: Denies back pain, joint pain, or myalgia. NEUROLOGIC: Denies headache, numbness, or weakness. All other systems reviewed are negative, except as documented in HPI. [facility] Past Medical History Medical History (Updated 04/05/22 @ 15:40 by KIRK Garcia) ADHD Asthma Depression Hx of migraines Pneumonia UTI (urinary tract infection) Surgical History Surgical History History of appendectomy History of section History of cholecystectomy History of lung surgery History of tonsillectomy History of tubal ligation Family History Family History Father Sleep apnea Obesity Hypertension Mother Obesity Hypertension Degenerative disk disease Bipolar 1 disorder Other Lung cancer Social History Social History Smoking packs per day: 2 Smoking cigarettes per day: 40.0 Years smoked: 2 Smoking pack-years: 4.00 Smoking status: Current every day smoker Tobacco type: cigarettes Alcohol intake: never Substance use: current Substance use type: marijuana Last use: 01/01/21 Gender identity (if verbalized by the patient): Female Spiritual care concerns: No Comments At the time of my signature, I reviewed and agree with the nursing past medical, surgical, social, and family history. There is no relevant family history pertinent to the patient complaint. Exam Narrative: GENERAL: This is a well-nourished, well-developed patient, in no apparent distress. HEAD: normocephalic, atraumatic. EYES: PERRL. Sclera clear/white. Vision is grossly intact. EARS: External ears normal, auditory canals clear and without drainage, TMs normal without perforation. Hearing grossly intact. NOSE: External nose normal with no obvious nasal discharge, nares without redness, no rhinorrhea. THROAT: Mucous membranes moist, posterior pharynx clear. NECK: Neck supple CARDIOVASCULAR: Regular rate and rhythm without murmurs, gallops, or rubs. RESPIRATORY: Clear to ausc
[2022-04-05 15:29] VITALS: BP 122/77; PULSE 120; RESP 19; TEMP 36.2; O2SAT 98
== END 2022-04-05 15:41 | disposition home or self-care (01) ==
PROVIDERS: Emergency Provider Nurse Practitioner Family
DX: R11.2 Nausea with vomiting, unspecified (principal); R19.7 Diarrhea, unspecified; F17.210 Nicotine dependence, cigarettes, uncomplicated
CPT/HCPCS: 99213; G0463

== ENCOUNTER 2022-06-02 17:52 | Emergency (ER) | payer OTHER, SELFPAY ==
--- NOTE | 2022-06-02 17:53 | ED.URI ---
HPI - URI/Sore Throat General Chief Complaint: Upper Respiratory Infection Stated Complaint: COUGH/CONGESTION Time Seen by Provider: 06/02/22 17:54 Source: patient and RN notes reviewed History of Present Illness HPI Narrative: Patient is a 26-year-old female who presents to urgent care with complaints of cough, congestion and hoarseness. Patient denies any fever, nausea, vomiting or sore throat. States that it started yesterday morning and she is concerned due to missing work. Patient states that she has been taking NyQuil and Tylenol. Denies any ill exposures. No other acute complaints. No acute distress noted. Patient aware of the plan of care. Some parts of this dictation were generated by voice recognition software and may contain typographical and/or grammatical inaccuracies. Related Data Allergies Allergy/AdvReac Type Severity Reaction Status Date / Time No Known Allergies Allergy Mild NONE Verified 06/02/22 18:01 Review of Systems Review of Systems: CONSTITUTIONAL: Denies fever, chills, or sweats. EYES: Denies visual changes, redness, or discharge. ENT: Reports congestion, sore throat, hoarse voice CARDIOVASCULAR: Denies chest pain, palpitations, or edema. RESPIRATORY: Reports of productive cough without dyspnea GASTROINTESTINAL: Denies abdominal pain, nausea, vomiting, or diarrhea. GENITOURINARY: Denies dysuria or hematuria. SKIN: Denies rash or itching. MUSCULOSKELETAL: Denies back pain, joint pain, or myalgia. NEUROLOGIC: Denies headache, numbness, or weakness. All other systems reviewed are negative, except as documented in HPI. [facility] Past Medical History Medical History (Updated 06/02/22 @ 18:16 by KIRK Garcia) ADHD Asthma Depression Hx of migraines Pneumonia UTI (urinary tract infection) Surgical History Surgical History History of appendectomy History of section History of cholecystectomy History of lung surgery History of tonsillectomy History of tubal ligation Family History Family History Father Sleep apnea Obesity Hypertension Mother Obesity Hypertension Degenerative disk disease Bipolar 1 disorder Other Lung cancer Social History Social History Smoking packs per day: 2 Smoking cigarettes per day: 40.0 Years smoked: 2 Smoking pack-years: 4.00 Smoking status: Current every day smoker Tobacco type: cigarettes Alcohol intake: never Substance use: current Substance use type: marijuana Last use: 01/01/21 Gender identity (if verbalized by the patient): Female Spiritual care concerns: No Comments At the time of my signature, I reviewed and agree with the nursing past medical, surgical, social, and family history. There is no relevant family history pertinent to the patient complaint. Exam Narrative: GENERAL: This is a well-nourished, well-developed patient, in no apparent distress. HEAD: normocephalic, atraumatic. EYES: PERRL. Sclera clear/white. Vision is grossly intact. EARS: External ears normal, auditory canals clear and without drainage, TMs normal without perforation. Hearing grossly intact. NOSE: External nose normal with no obvious nasal discharge, nares without redness, clear rhinorrhea. THROAT: Mucous membranes moist, posterior pharynx clear. Moderate postnasal drainage NECK: Neck supple, non-tender without lymphadenopathy, masses or thyromegaly. CARDIOVASCULAR: Regular rate and rhythm RESPIRATORY: Slight crackles throughout SKIN: warm, intact with no suspicious lesions or rash, good texture and turgor. NEURO: awake, alert, and oriented to person, place and time. There were no obvious focal neurologic abnormalities. EXTREMITIES: No clubbing, cyanosis, or edema. Course Course Level of Care: Express Care Visit Vital Signs Vital signs: Vital Signs
[2022-06-02 18:01] VITALS: BP 105/70; PULSE 80; RESP 16; TEMP 36.8; O2SAT 100
[2022-06-02 18:02] VITALS: BP 105/70; PULSE 80; RESP 16; TEMP 36.8; O2SAT 100
== END 2022-06-02 18:21 | disposition home or self-care (01) ==
PROVIDERS: Emergency Provider Nurse Practitioner Family
DX: J40 Bronchitis, not specified as acute or chronic (principal); F17.210 Nicotine dependence, cigarettes, uncomplicated; J45.909 Unspecified asthma, uncomplicated
CPT/HCPCS: 99213; G0463

== ENCOUNTER 2022-06-29 11:38 | Outpatient (CLI) | payer BC, SELFPAY ==
--- NOTE | ~2022-06-29 | US_ITS ---
US breast RT limited DATE: 06/29/2022 12:19 INDICATION: Several probable lesions felt by patient and referring physician TECHNIQUE: Real-time and color flow imaging targeted to areas of clinical complaint and right breast 12:00 3 cm from nipple, 11:00 8 cm from nipple and 4:00 COMPARISON: None FINDINGS: No suspicious mass or shadowing or suspicious vascularity is detected the areas of concern. IMPRESSION: BI-RADS Category 1: Negative Reviewed, dictated and finalized at [facility]. Reviewed, dictated and finalized at [facility]. [employer]
== END 2022-06-29 11:39 | disposition home or self-care (01) ==
LOC: ANHIMG 11:43
PROVIDERS: PCP Obstetrics & Gynecology; Visit Provider Obstetrics & Gynecology
DX: N60.01 Solitary cyst of right breast (principal)
CPT/HCPCS: 76642

== ENCOUNTER 2022-09-24 20:55 | Emergency (ER) | payer BC, SELFPAY ==
--- NOTE | ~2022-09-24 | XR_ITS ---
EXAMINATION: XR wrist RT min 3V DATE: 09/24/2022 21:24 INDICATION: Ulnar-sided right wrist pain. TECHNIQUE: Posteroanterior, ulnar deviation, oblique, and lateral views of the right wrist were obtai real. COMPARISON: none FINDINGS: Alignment is normal. No fracture. Joint spaces are normal. Soft tissues are unremarkable. IMPRESSION: 1. Negative right wrist radiographs. Reviewed, dictated and finalized at [facility].
[2022-09-24 20:57] VITALS: BP 112/72; PULSE 78; RESP 18; TEMP 37.1; O2SAT 100
--- NOTE | 2022-09-24 21:17 | ED.UPPEXIN ---
HPI - Extremity Injury (Upper) General Chief Complaint: Extremity Injury, Upper Stated Complaint: extremity injury Time Seen by Provider: 09/24/22 21:09 History of Present Illness HPI narrative: Patient is a 27-year-old female here for evaluation of right wrist pain x3 days. Patient states that she was working in the yard spreading rocks around her front lawn and her right wrist started to ache. Since then she has had worsening pain, concentrated around her ulnar styloid process. She denies any weakness, numbness or tingling, pain in the hand, fingers or elbow. No direct trauma to the wrist. She has been taking Tylenol without relief of her symptoms. She also has been wearing an OTC wrist brace without relief. Related Data Allergies Allergy/AdvReac Type Severity Reaction Status Date / Time No Known Allergies Allergy Mild NONE Verified 09/24/22 21:02 Review of Systems Review of Systems: Gen: Denies fevers or chills Eyes: Denies eye pain or visual change ENT: Denies congestion Respiratory: Denies shortness of breath or cough CV: Denies chest pain or palpitations GI: Denies abdominal pain nausea, emesis or diarrhea : denies burning, urgency, frequency or hematuria Musculoskeletal: Reports right wrist pain Neuro: Denies numbness, tingling, weakness or focal weakness Skin: Denies rash Except as documented, all other systems reviewed and negative [facility] Past Medical History Medical History ADHD Asthma Depression Encounter for IUD insertion 08/28/13 Mirena insertion Encounter for IUD removal 01/16/14 Mirena removal Hx of migraines Pneumonia UTI (urinary tract infection) Surgical History Surgical History History of appendectomy History of bronchoscopy (04/13/16) (R) pleural effusion/emphysema History of section 06/18/13 primary c/s--arrest of dilation--direct OP position Patricia 10/05/16 rpt c/s--no complications Gemma 01/02/19 rpt c/s w/BTL Ayad History of cholecystectomy (01/10/19) History of tonsillectomy (~2011) History of tubal ligation (01/02/19) Family History Family History Father Sleep apnea Obesity Hypertension Mother Obesity Hypertension Degenerative disk disease Bipolar 1 disorder Other Lung cancer Social History Social History (Updated 06/27/22 @ 15:47 by NU Polk) Smoking packs per day: 2 Smoking cigarettes per day: 40.0 Years smoked: 2 Smoking pack-years: 4.00 Smoking status: Current every day smoker Tobacco type: cigarettes Alcohol intake: never Substance use: current Substance use type: marijuana Other substance usage details: daily Last use: 01/01/21 Living arrangements: other Additional living arrangements comments: Occupation/Education: other Additional occupation/education comments: stay at home mom Gender identity (if verbalized by the patient): Female Sexual Orientation (if Verbalized by the Patient): Straight or Heterosexual Spiritual care concerns: No Exam Narrative: APPEARANCE: Well appearing, no pain in distress, well-nourished. Head: Normocephalic and atraumatic. EYES: PERRLA/EOMI, conjunctivae clear NOSE: No nasal drainage EARS: External ear normal in appearance THROAT: Oropharynx is clear. Mucous membranes are moist. NECK: Supple. No adenopathy, no masses. RESPIRATORY: Airway patent, respirations nonlabored. Clear to auscultation bilaterally, no rales, rhonchi, wheezing. CARDIOVASCULAR: Regular rate and rhythm without murmurs, rubs, or gallops. ABDOMINAL: Normoactive bowel sounds. Soft, nontender, nondistended. No rebound tenderness or guarding. MUSCULOSKELETAL: There is tenderness to palpation to the right ulnar styloid. Full range of motion in the fingers. Sensation intact to entirety of hand. No ten
[2022-09-24] MEDS: KETOROLAC 30 MG/ML VIAL (*BKC) IM (21:29)
== END 2022-09-24 22:02 | disposition home or self-care (01) ==
PROVIDERS: Emergency Provider Physician Assistant; PCP Obstetrics & Gynecology
DX: S63.501A Unspecified sprain of right wrist, initial encounter (principal); F17.210 Nicotine dependence, cigarettes, uncomplicated; F90.9 Attention-deficit hyperactivity disorder, unspecified type; J45.909 Unspecified asthma, uncomplicated; F32.A Depression, unspecified; Z87.440 Personal history of urinary (tract) infections; X50.3XXA Overexertion from repetitive movements, initial encounter
CPT/HCPCS: 73110; 96372; 99283; J1885

== ENCOUNTER 2022-10-19 13:02 | Emergency (ER) | payer BC, SELFPAY ==
[2022-10-19 13:08] VITALS: BP 108/73; PULSE 78; RESP 18; TEMP 36.5; O2SAT 100
[2022-10-19 13:26] LABS: Basophils Percent Auto 0.2 % (0.2-1.2); Eosinophils Percent Auto 0.1 % (0-4.4); Hematocrit 45.9 % (37.0-47.0); Hemoglobin 15.4 g/dL (12.0-15.0); Immature Granulocyte Absolute 0.02 K/mm3 (0.00-0.031); Immature Granulocyte Percent A 0.2 % (0-0.5); Lymphocytes Absolute Auto 1.54 K/mm3 (0.9-3.2); Lymphocytes Percent Auto 18.2 % (18.3-44.2); Mean Corpuscular HGB Conc 33.6 g/dl (32-36); Mean Corpuscular Hemoglobin 29.4 pg (26-34); Mean Corpuscular Volume 87.6 fl (80-100); Mean Platelet Volume 11.1 fl (7.4-10.4); Monocytes Absolute Auto 0.7 K/mm3 (0.1-0.6); Monocytes Percent Auto 7.9 % (2.6-8.5); Neutrophils Absolute Auto 6.2 K/mm3 (1.3-6.7); Neutrophils Percent Auto 73.4 % (45.5-73.1); Platelet Count Result 186 k/mm3 (150-375); Red Blood Count 5.24 M/mm3 (4.2-5.4); Red Cell Distribution Width 14.6 % (11.5-14.5); White Blood Count 8.5 K/mm3 (4.5-10.0)
[2022-10-19 13:37] LABS: Alanine Aminotransferase 16 U/L (6-35); Albumin Level 4.9 g/dL (3.5-5.1); Alkaline Phosphatase 49 U/L (38-126); Anion Gap 10 mmol/L (8-16); Aspartate Amino Transferase 23 U/L (14-36); Bilirubin,Total 0.6 mg/dL (0.2-1.3); Blood Urea Nitrogen 10 mg/dL (7-17); Calcium 9.4 mg/dL (8.4-10.2); Carbon Dioxide 24 mmol/L (22-30); Chloride 103 mmol/L (98-107); Estimated CRCL calculation 117 ml/min; Estimated Glomerular Filt Rate > 60; Glucose 104 mg/dL (65-110); Lipase 101 U/L (23-300); Potassium 3.5 mmol/L (3.4-5.0); Sodium 137 mmol/L (137-145)
--- NOTE | 2022-10-19 13:37 | ED.NAVMDI ---
HPI - Nausea/Vomiting/Diarrhea General Chief complaint: Nausea/Vomiting/Diarrhea Stated complaint: N/V Time Seen by Provider: 10/19/22 13:05 History of Present Illness HPI Narrative: 27-year-old female here for evaluation of nausea, vomiting, diarrhea and lower abdominal cramping x3 days. She states she is unable to tolerate any p.o. and feels dehydrated. She has had numerous episodes of vomiting nonbloody/nonbilious emesis and is having numerous episodes of watery stools per day. Denies any new or suspicious foods. No sick contacts. No urinary symptoms. She is s/p appendectomy and cholecystectomy. Related Data Allergies Allergy/AdvReac Type Severity Reaction Status Date / Time No Known Allergies Allergy Mild NONE Verified 10/19/22 13:12 Review of Systems Review of Systems: Gen: Denies fevers or chills Eyes: Denies eye pain or visual change ENT: Denies congestion Respiratory: Denies shortness of breath or cough CV: Denies chest pain or palpitations GI: Denies abdominal pain nausea, emesis or diarrhea : denies burning, urgency, frequency or hematuria Musculoskeletal: Denies back pain or muscle pain Neuro: Denies numbness, tingling, weakness or focal weakness Skin: Denies rash Except as documented, all other systems reviewed and negative PMF Past Medical History Medical History ADHD Asthma Depression Encounter for IUD insertion 08/28/13 Mirena insertion Encounter for IUD removal 01/16/14 Mirena removal Hx of migraines Pneumonia UTI (urinary tract infection) Surgical History Surgical History History of appendectomy History of bronchoscopy (04/13/16) (R) pleural effusion/emphysema History of section 06/18/13 primary c/s--arrest of dilation--direct OP position Patricia 10/05/16 rpt c/s--no complications Beatriz 01/02/19 rpt c/s w/BTL Ayad History of cholecystectomy (01/10/19) History of tonsillectomy (~2011) History of tubal ligation (01/02/19) Family History Family History Father Sleep apnea Obesity Hypertension Mother Obesity Hypertension Degenerative disk disease Bipolar 1 disorder Other Lung cancer Social History Social History (Updated 06/27/22 @ 15:47 by NU Polk) Smoking packs per day: 2 Smoking cigarettes per day: 40.0 Years smoked: 2 Smoking pack-years: 4.00 Smoking status: Current every day smoker Tobacco type: cigarettes Alcohol intake: never Substance use: current Substance use type: marijuana Other substance usage details: daily Last use: 01/01/21 Living arrangements: other Additional living arrangements comments: Occupation/Education: other Additional occupation/education comments: stay at home mom Gender identity (if verbalized by the patient): Female Sexual Orientation (if Verbalized by the Patient): Straight or Heterosexual Spiritual care concerns: No Exam Narrative: APPEARANCE: Well appearing, no pain in distress, well-nourished. Head: Normocephalic and atraumatic. EYES: PERRLA/EOMI, conjunctivae clear NOSE: No nasal drainage EARS: External ear normal in appearance THROAT: Oropharynx is clear. Mucous membranes are moist. NECK: Supple. No adenopathy, no masses. RESPIRATORY: Airway patent, respirations nonlabored. Clear to auscultation bilaterally, no rales, rhonchi, wheezing. CARDIOVASCULAR: Regular rate and rhythm without murmurs, rubs, or gallops. ABDOMINAL: Normoactive bowel sounds. Soft, nontender, nondistended. No rebound tenderness or guarding. MUSCULOSKELETAL: Extremities are warm and well-perfused. Moves all extremities well. No edema. NEURO: Normal speech. No focal neurologic deficits. SKIN: Skin is warm and dry. No rashes. PSYCHIATRIC: Normal affect/mood.. Course Vital Signs Vital signs: V
[2022-10-19 13:42] LABS: Appearance Urine Cloudy (Clear); Bacteria Urine None Seen /hpf; Bilirubin Urine Negative (Negative); Blood Urine 2+ (Negative); Color Urine Dark Yellow (Yellow); Glucose Urine UA Negative (Negative); Ketones Urine 4+ mg/dL (Negative); Leukocyte Esterase Ur Negative LEU/UL (Negative); Mucus Urine Present /lpf; Nitrate Urine Negative (Negative); Protein Urine 2+ mg/dL (Negative); RBC Urine 21-50 /hpf (0-2); Specific Grav Ur 1.032 (1.001-1.035); Squamous Epithelial Cell Urine Moderate /hpf (Few); WBC Urine 0-5 /hpf
[2022-10-19 13:48] LABS: Add Urine Microscopic? YES
[2022-10-19 13:53] VITALS: BP 113/69; PULSE 72; RESP 15; O2SAT 100
[2022-10-19] MEDS: DICYCLOMINE HCL INJ 20 MG/2 ML VIAL IM (13:55)
[2022-10-19] MEDS: SODIUM CHLORIDE 0.9% IV 1,000 ML 999 ML IV CONT ×2 (13:55→14:21)
[2022-10-19] MEDS: FAMOTIDINE 20 MG/2 ML VIAL IV PUSH (13:55)
[2022-10-19] MEDS: ONDANSETRON INJ 4 MG/2 ML VIAL IV PUSH (13:55)
--- NOTE | 2022-10-19 14:29 | ECG_ITS ---
Measurements Intervals [place] Rate: 62 P: 52 FL: 149 QRS: 84 QRSD: 96 T: -14 QT: 437 QTc: 446 Interpretive Statements SINUS RHYTHM WITH SINUS ARRHYTHMIA NONSPECIFIC ST & T-WAVE ABNORMALITY NO PREVIOUS ECG AVAILABLE FOR COMPARISON Electronically Signed On 10-19-2022 19:58:00 CDT by Mae Bill M.D.
[2022-10-19 15:12] VITALS: BP 107/76; PULSE 55; RESP 16; O2SAT 100
[2022-10-19 15:51] LABS: Magnesium 1.7 mg/dL (1.6-2.3)
[2022-10-19 17:00] VITALS: BP 109/68; PULSE 66; RESP 12; O2SAT 100
[2022-10-19 17:39] LABS: Thyroid Stimulating Hormone Reflex 0.087 uIU/mL (0.465-4.68)
[2022-10-19 18:27] VITALS: BP 109/68; PULSE 77; RESP 13; O2SAT 98
[2022-10-19 18:29] LABS: Free T4 Free Thyroxine Reflex 1.58 ng/dL (0.78-2.19)
[2022-10-19 19:35] LABS: Total Triiodothyronine (T3) 0.78 NG/ML (0.97-1.69)
== END 2022-10-19 18:42 | disposition home or self-care (01) ==
PROVIDERS: Emergency Provider Physician Assistant
DX: K52.9 Noninfective gastroenteritis and colitis, unspecified (principal); J45.909 Unspecified asthma, uncomplicated; F17.210 Nicotine dependence, cigarettes, uncomplicated; Z87.440 Personal history of urinary (tract) infections; Z87.01 Personal history of pneumonia (recurrent); Z90.49 Acquired absence of other specified parts of digestive tract; R94.31 Abnormal electrocardiogram [ECG] [EKG]
CPT/HCPCS: 36415; 80053; 81001; 81025; 83690; 83735; 84439; 84443; 84480; 85025; 93005; 96361; 96372; 96374; 96375; 99284; J0500; J2405; J7030

== ENCOUNTER 2022-10-20 11:16 | Emergency (ER) | payer BC, SELFPAY ==
--- NOTE | 2022-10-20 11:27 | ECG_ITS ---
Measurements Intervals [place] Rate: 59 P: 55 [place]: 130 QRS: 79 QRSD: 93 T: 56 QT: 429 QTc: 428 Interpretive Statements SINUS BRADYCARDIA WITH SINUS ARRHYTHMIA COMPARED TO ECG 10/19/2022 14:40:22 SINUS BRADYCARDIA NOW PRESENT Electronically Signed On 10-20-2022 13:34:38 CDT by Mae Bill M.D.
--- NOTE | 2022-10-20 11:27 | PC.NURSE ---
pt crying at desk during registration, reports here yesterday for same thing. After sitting in waiting room for a few minutes S.O came to desk to report pt now has CP, EKG ordered
[2022-10-20 11:43] LABS: Basophils Percent Auto 0.1 % (0.2-1.2); Eosinophils Percent Auto 0.1 % (0-4.4); Hematocrit 43.5 % (37.0-47.0); Hemoglobin 14.6 g/dL (12.0-15.0); Immature Granulocyte Absolute 0.03 K/mm3 (0.00-0.031); Immature Granulocyte Percent A 0.4 % (0-0.5); Lymphocytes Absolute Auto 0.97 K/mm3 (0.9-3.2); Lymphocytes Percent Auto 13.6 % (18.3-44.2); Mean Corpuscular HGB Conc 33.6 g/dl (32-36); Mean Corpuscular Hemoglobin 29.2 pg (26-34); Mean Platelet Volume 11.3 fl (7.4-10.4); Monocytes Absolute Auto 0.3 K/mm3 (0.1-0.6); Monocytes Percent Auto 4.3 % (2.6-8.5); Neutrophils Absolute Auto 5.8 K/mm3 (1.3-6.7); Neutrophils Percent Auto 81.5 % (45.5-73.1); Platelet Count Result 178 k/mm3 (150-375); Red Cell Distribution Width 14.6 % (11.5-14.5); White Blood Count 7.2 K/mm3 (4.5-10.0)
[2022-10-20 11:45] VITALS: BP 100/54; PULSE 90; RESP 16; TEMP 36.8; O2SAT 100
[2022-10-20 11:57] LABS: Alanine Aminotransferase 15 U/L (6-35); Albumin Level 4.5 g/dL (3.5-5.1); Alkaline Phosphatase 46 U/L (38-126); Anion Gap 7 mmol/L (8-16); Aspartate Amino Transferase 25 U/L (14-36); Bilirubin,Total 0.6 mg/dL (0.2-1.3); Blood Urea Nitrogen 11 mg/dL (7-17); Calcium 9.2 mg/dL (8.4-10.2); Carbon Dioxide 27 mmol/L (22-30); Chloride 105 mmol/L (98-107); Estimated CRCL calculation 102 ml/min; Estimated Glomerular Filt Rate > 60; Glucose 100 mg/dL (65-110); Lipase 60 U/L (23-300); Potassium 4.1 mmol/L (3.4-5.0); Sodium 139 mmol/L (137-145)
--- NOTE | 2022-10-20 14:29 | PC.NURSE ---
Called 3 times to be placed in room and not in waiting room
== END 2022-10-20 14:29 | disposition left against medical advice (07) ==
PROVIDERS: Emergency Provider Emergency Medicine
DX: R10.13 Epigastric pain (principal)
CPT/HCPCS: 36415; 80053; 83690; 85025; 93005; 99199

== ENCOUNTER 2023-05-17 12:50 | Emergency (ER) | payer BC, SELFPAY ==
[2023-05-17 13:10] VITALS: BP 105/56; PULSE 91; RESP 16; TEMP 37.7; O2SAT 100
--- NOTE | 2023-05-17 13:14 | ED.ABDPAIN ---
HPI - Abdominal Pain General Chief Complaint: Abdominal Pain Stated Complaint: constipated,low back pain, blood when wiping Time Seen by Provider: 05/17/23 13:14 Source: patient Mode of arrival: ambulatory Limitations: no limitations History of Present Illness HPI narrative: 27 yo F presents with multiple complaints. States that she has been constipated that past several days. Only drinks soda but knows she needs to drink more water. has not tried any OTC meds to treat constipation. Noticed bright red blood in toilet today when trying to have a BM. has mild pain at rectum and has been straining to have BM. Unsure if she has hemorrhoids. Also reports R sided low back pain with radiation to RLE. Thinks sciatica. States her mom has problems with sciatica. Ambulatory with steady gait. No urinary complaints. No loss of bowel or bladder. no numbness/weakness to LEs. All systems reviewed and negative except as noted above. Related Data Home Medications Medication Instructions Recorded Confirmed budesonide-formoterol HFA 80 2 puff inhalation BID 05/17/23 05/17/23 mcg-4.5 mcg/actuation aerosol inhaler (Symbicort) duloxetine 40 mg capsule,delayed 40 mg PO DAILY 05/17/23 05/17/23 release Allergies Allergy/AdvReac Type Severity Reaction Status Date / Time No Known Allergies Allergy Mild NONE Verified 05/17/23 13:14 Review of Systems Review of Systems: ROS CONSTITUTIONAL: Denies fever, chills, or sweats. EYES: Denies visual changes, redness, or discharge. ENT: Denies rhinorrhea, congestion, sore throat, or otalgia. CARDIOVASCULAR: Denies chest pain, palpitations, or edema. RESPIRATORY: Denies cough or dyspnea. GASTROINTESTINAL: Denies abdominal pain, nausea, vomiting, or diarrhea. Reports constipation and rectal bleeding GENITOURINARY: Denies dysuria or hematuria. SKIN: Denies rash or itching. MUSCULOSKELETAL: Denies joint pain, or myalgia. Reports R sided low back pain with radiation to RLE. NEUROLOGIC: Denies headache, numbness, or weakness. PSYCHIATRIC: Denies anxiety or depression. All other systems reviewed are negative, except as documented in HPI. [facility] Past Medical History Medical History ADHD Asthma Depression Encounter for IUD insertion 08/28/13 Mirena insertion Encounter for IUD removal 01/16/14 Mirena removal Hx of migraines Pneumonia UTI (urinary tract infection) Surgical History Surgical History History of appendectomy History of bronchoscopy (04/13/16) (R) pleural effusion/emphysema History of section 06/18/13 primary c/s--arrest of dilation--direct OP position Patricia 10/05/16 rpt c/s--no complications Gemma 01/02/19 rpt c/s w/BTL Ayad History of cholecystectomy (01/10/19) History of tonsillectomy (~2011) History of tubal ligation (01/02/19) Family History Family History Father Sleep apnea Obesity Hypertension Mother Obesity Hypertension Degenerative disk disease Bipolar 1 disorder Other Lung cancer Social History Social History (Updated 06/27/22 @ 15:47 by NU Polk) Smoking packs per day: 2 Smoking cigarettes per day: 40.0 Years smoked: 2 Smoking pack-years: 4.00 Smoking status: Current every day smoker Tobacco type: cigarettes Alcohol intake: never Substance use: current Substance use type: marijuana Other substance usage details: daily Last use: 01/01/21 Living arrangements: other Additional living arrangements comments: Occupation/Education: other Additional occupation/education comments: stay at home mom Gender identity (if verbalized by the patient): Female Sexual Orientation (if Verbalized by the Patient): Straight or Heterosexual Spiritual care concerns: No Comments At time of signature, agree with cb
== END 2023-05-17 13:41 | disposition home or self-care (01) ==
PROVIDERS: Emergency Provider Nurse Practitioner Family
DX: K59.00 Constipation, unspecified (principal); K64.4 Residual hemorrhoidal skin tags; M54.41 Lumbago with sciatica, right side; F17.210 Nicotine dependence, cigarettes, uncomplicated; F12.90 Cannabis use, unspecified, uncomplicated; J45.909 Unspecified asthma, uncomplicated
CPT/HCPCS: 99213; G0463

== ENCOUNTER 2023-06-07 09:00 | Emergency (ER) | payer BC, SELFPAY ==
[2023-06-07 09:10] VITALS: BP 105/59; PULSE 75; RESP 16; TEMP 36.9; O2SAT 100
--- NOTE | 2023-06-07 09:12 | ED.EYEPROB ---
HPI - Eye Problem General Chief complaint: Eye Problems Stated complaint: Eyes Irritation Time Seen by Provider: 06/07/23 09:13 Source: patient Mode of arrival: ambulatory Limitations: no limitations History of Present Illness HPI Narrative: 27-year-old female presents with complaint of itching and burning to bilateral eyes with redness since last night. Woke up with crusting to eyes this morning. Patient states she tried to put in her contact in eyes were burning. Took them out and threw them away. No vision changes. No photophobia. All systems reviewed and negative except as noted above. Related Data Home Medications Medication Instructions Recorded Confirmed budesonide-formoterol HFA 80 2 puff inhalation BID 05/17/23 06/07/23 mcg-4.5 mcg/actuation aerosol inhaler (Symbicort) duloxetine 40 mg capsule,delayed 40 mg PO DAILY 05/17/23 06/07/23 release Allergies Allergy/AdvReac Type Severity Reaction Status Date / Time No Known Allergies Allergy Mild NONE Verified 06/07/23 09:05 Review of Systems Review of Systems: CONSTITUTIONAL: Denies fever, chills, or sweats. EYES: Denies visual changes . Reports redness, itching and discharge. ENT: Denies rhinorrhea, congestion, sore throat, or otalgia. CARDIOVASCULAR: Denies chest pain, palpitations, or edema. RESPIRATORY: Denies cough or dyspnea. GASTROINTESTINAL: Denies abdominal pain, nausea, vomiting, or diarrhea. GENITOURINARY: Denies dysuria or hematuria. SKIN: Denies rash or itching. MUSCULOSKELETAL: Denies back pain, joint pain, or myalgia. NEUROLOGIC: Denies headache, numbness, or weakness. PSYCHIATRIC: Denies anxiety or depression. All other systems reviewed are negative, except as documented in HPI. [facility] Past Medical History Medical History ADHD Asthma Depression Encounter for IUD insertion 08/28/13 Mirena insertion Encounter for IUD removal 01/16/14 Mirena removal Hx of migraines Pneumonia UTI (urinary tract infection) Surgical History Surgical History History of appendectomy History of bronchoscopy (04/13/16) (R) pleural effusion/emphysema History of section 06/18/13 primary c/s--arrest of dilation--direct OP position Patricia 10/05/16 rpt c/s--no complications Beatriz 01/02/19 rpt c/s w/BTL Ayad History of cholecystectomy (01/10/19) History of tonsillectomy (~2011) History of tubal ligation (01/02/19) Family History Family History Father Sleep apnea Obesity Hypertension Mother Obesity Hypertension Degenerative disk disease Bipolar 1 disorder Other Lung cancer Social History Social History (Updated 06/27/22 @ 15:47 by NU Polk) Smoking packs per day: 2 Smoking cigarettes per day: 40.0 Years smoked: 2 Smoking pack-years: 4.00 Smoking status: Current every day smoker Tobacco type: cigarettes Alcohol intake: never Substance use: current Substance use type: marijuana Other substance usage details: daily Last use: 01/01/21 Living arrangements: other Additional living arrangements comments: Occupation/Education: other Additional occupation/education comments: stay at home mom Gender identity (if verbalized by the patient): Female Sexual Orientation (if Verbalized by the Patient): Straight or Heterosexual Spiritual care concerns: No Comments At time of signature, agree with nursing past medical, surgical, social and family history. There is no relevant family history pertinent to the presenting complaint. Exam Narrative: GENERAL: This is a well-nourished, well-developed patient, in no apparent distress. HEAD: normocephalic, atraumatic. EYES: PERRL. erythema to bilateral conjunctiva. Sclera clear and normal. Yellowish crusting noted to eye lashes. Vision
== END 2023-06-07 09:25 | disposition home or self-care (01) ==
PROVIDERS: Emergency Provider Nurse Practitioner Family
DX: H10.33 Unspecified acute conjunctivitis, bilateral (principal); F17.210 Nicotine dependence, cigarettes, uncomplicated; F12.90 Cannabis use, unspecified, uncomplicated; J45.909 Unspecified asthma, uncomplicated
CPT/HCPCS: 99213; G0463

== ENCOUNTER 2023-06-09 13:31 | Emergency (ER) | payer BC, SELFPAY ==
--- NOTE | 2023-06-09 13:39 | ED.GENADULT ---
HPI - General Adult General Chief complaint: Unspecified Stated complaint: work note Source: patient, RN notes reviewed and old records reviewed Mode of arrival: ambulatory Limitations: no limitations History of Present Illness HPI narrative: 27-year-old female presents to [facility] with complaints needing a work note for today. Patient was seen 2 days ago and diagnosed with conjunctivitis and put on eyedrops. Patient states does not have glasses to wear and cannot return to work without being able to see. Patient states eyes are still itching and tearing. Related Data Home Medications Medication Instructions Recorded Confirmed budesonide-formoterol HFA 80 2 puff inhalation BID 05/17/23 06/09/23 mcg-4.5 mcg/actuation aerosol inhaler (Symbicort) duloxetine 40 mg capsule,delayed 40 mg PO DAILY 05/17/23 06/09/23 release azelastine 0.05 % eye drops See Rx Instructions .Route .COMPLEX 06/09/23 06/09/23 Allergies Allergy/AdvReac Type Severity Reaction Status Date / Time No Known Allergies Allergy Mild NONE Verified 06/09/23 13:34 Review of Systems Constitutional: Constitutional: Reports no additional constitutional complaints, Denies body ache(s), Denies chills, Denies fatigue, Denies fever(s) and Denies headache(s) Eyes: Eyes: Reports no additional eye complaints, Denies blurry vision, Denies exophthalmos, Denies change in vision, Denies decreased night vision, Denies diplopia, Reports eye discharge and Reports itchy eyes ENT: Reports system reviewed and no additional complaints, except as documented, Denies vertigo, Denies dizziness, Denies ear discharge, Denies otalgia, Denies facial pain, Denies headache(s), Denies nasal congestion, Denies nasal discharge, Denies sinus pain, Denies sinus pressure and Denies sore throat Cardiovascular: Cardiovascular: Reports no additional cardiovascular complaints, Denies chest pain, Denies chest pain at rest, Denies rapid heart rate and Denies dyspnea Respiratory: Respiratory: Reports no additional respiratory complaints, Denies chest congestion, Denies cough, Denies pain on inspiration, Denies pain with cough and Denies dyspnea Gastrointestinal: Gastrointestinal: Denies abdominal pain, Denies diarrhea, Denies nausea and Denies vomiting Integumentary/Breasts: Skin/Breast: Denies rash Neurologic: Reports system reviewed and no additional complaints, except as documented, Denies vertigo, Denies dizziness and Denies headache(s) Endocrine: Endocrine: Denies fatigue PMFSH Past Medical History Medical History ADHD Asthma Depression Encounter for IUD insertion 08/28/13 Mirena insertion Encounter for IUD removal 01/16/14 Mirena removal Hx of migraines Pneumonia UTI (urinary tract infection) Surgical History Surgical History History of appendectomy History of bronchoscopy (04/13/16) (R) pleural effusion/emphysema History of section 06/18/13 primary c/s--arrest of dilation--direct OP position Patricia 10/05/16 rpt c/s--no complications Gemma 01/02/19 rpt c/s w/BTL Ayad History of cholecystectomy (01/10/19) History of tonsillectomy (~2011) History of tubal ligation (01/02/19) Family History Family History Father Sleep apnea Obesity Hypertension Mother Obesity Hypertension Degenerative disk disease Bipolar 1 disorder Other Lung cancer Social History Social History (Updated 06/27/22 @ 15:47 by NU Polk) Smoking packs per day: 2 Smoking cigarettes per day: 40.0 Years smoked: 2 Smoking pack-years: 4.00 Smoking status: Current every day smoker Tobacco type: cigarettes Alcohol intake: never Substance use: current Substance use type: marijuana Other substance usage details: daily Last use: 01/01/21 Living arrangements: other
[2023-06-09 13:44] VITALS: BP 112/63; PULSE 65; RESP 16; TEMP 36.7; O2SAT 99
== END 2023-06-09 13:53 | disposition home or self-care (01) ==
PROVIDERS: Emergency Provider Registered Nurse
DX: H10.9 Unspecified conjunctivitis (principal); F17.210 Nicotine dependence, cigarettes, uncomplicated; F12.90 Cannabis use, unspecified, uncomplicated; J45.909 Unspecified asthma, uncomplicated
CPT/HCPCS: 99211; G0463

== ENCOUNTER 2023-06-15 16:43 | Emergency (ER) | payer BC, SELFPAY ==
[2023-06-15 16:50] VITALS: BP 123/61; PULSE 77; RESP 20; TEMP 37.2; O2SAT 99
--- NOTE | 2023-06-15 17:22 | ED.GENADULT ---
HPI - General Adult General Chief complaint: Headache Stated complaint: diarrhea,headache Time Seen by Provider: 06/15/23 17:07 Source: patient and RN notes reviewed Mode of arrival: ambulatory Limitations: no limitations History of Present Illness HPI narrative: Patient presents today with a 2 day history of diarrhea, abdominal cramping, and right frontal headache. Patient had 6-7 diarrhea episodes yesterday and 4 so far today. She has cramping prior to bowel movement, then they improve. Full she currently rates her headache 11/07 and has been taking Tylenol with some mild relief. Denies fever, blood or mucus in the stool. She has been drinking normally, but her food intake is decreased due to the diarrhea. States her daughter was diagnosed with the, ?stomach flu? several days ago. Related Data Home Medications Medication Instructions Recorded Confirmed budesonide-formoterol HFA 80 2 puff inhalation BID 05/17/23 06/15/23 mcg-4.5 mcg/actuation aerosol inhaler (Symbicort) duloxetine 40 mg capsule,delayed 40 mg PO DAILY 05/17/23 06/15/23 release azelastine 0.05 % eye drops See Rx Instructions .Route .COMPLEX 06/09/23 06/15/23 Allergies Allergy/AdvReac Type Severity Reaction Status Date / Time No Known Allergies Allergy Mild NONE Verified 06/09/23 13:34 Review of Systems Review of Systems: CONSTITUTIONAL: Denies body aches, fever, chills, or sweats. EYES: Denies visual changes, redness, or discharge. ENT: Denies rhinorrhea, congestion, sore throat, or otalgia. CARDIOVASCULAR: Denies chest pain, palpitations, or edema. RESPIRATORY: Denies cough or dyspnea. GASTROINTESTINAL: + abdominal cramping, nausea, diarrhea GENITOURINARY: Denies dysuria or hematuria. SKIN: Denies rash, itching, or wounds. MUSCULOSKELETAL: Denies back pain, joint pain, or myalgia. NEUROLOGIC: Denies numbness, tingling, or weakness.+ headache PSYCH: Denies depression or anxiety. COUNT INCLUDES THE [facility] Past Medical History Medical History ADHD Asthma Depression Encounter for IUD insertion 08/28/13 Mirena insertion Encounter for IUD removal 01/16/14 Mirena removal Hx of migraines Pneumonia UTI (urinary tract infection) Surgical History Surgical History History of appendectomy History of bronchoscopy (04/13/16) (R) pleural effusion/emphysema History of section 06/18/13 primary c/s--arrest of dilation--direct OP position Patricia 10/05/16 rpt c/s--no complications Beatriz 01/02/19 rpt c/s w/BTL Ayad History of cholecystectomy (01/10/19) History of tonsillectomy (~2011) History of tubal ligation (01/02/19) Family History Family History Father Sleep apnea Obesity Hypertension Mother Obesity Hypertension Degenerative disk disease Bipolar 1 disorder Other Lung cancer Social History Social History Smoking packs per day: 2 Smoking cigarettes per day: 40.0 Years smoked: 2 Smoking pack-years: 4.00 Smoking status: Current every day smoker Tobacco type: cigarettes Alcohol intake: never Substance use: current Substance use type: marijuana Other substance usage details: daily Last use: 01/01/21 Living arrangements: other Additional living arrangements comments: Occupation/Education: other Additional occupation/education comments: stay at home mom Gender identity (if verbalized by the patient): Female Sexual Orientation (if Verbalized by the Patient): Straight or Heterosexual Spiritual care concerns: No Comments At time of signature, I have reviewed and agree with nursing past medical, surgical, social and family history unless otherwise noted. Please see nursing chart for further information. There is no relevant family history pert
== END 2023-06-15 17:34 | disposition home or self-care (01) ==
PROVIDERS: Emergency Provider Nurse Practitioner
DX: R19.7 Diarrhea, unspecified (principal); F17.210 Nicotine dependence, cigarettes, uncomplicated; F12.90 Cannabis use, unspecified, uncomplicated; J45.909 Unspecified asthma, uncomplicated
CPT/HCPCS: 99213; G0463